=== PATIENT | male | born 1965 | race Caucasian/White ===

== ENCOUNTER 2021-11-12 09:24 | Inpatient (IN) | payer BC ==
[~2021-11-12] VITALS: Ht 180.3 cm; Wt 78.2 kg
[2021-11-12 10:31] LABS: BASOPHILS % (AUTO) 0.1 % (0-1); EOSINOPHILS % (AUTO) 0.4 % (0-6); HEMATOCRIT 42.6 % (42.0-52.0); HEMOGLOBIN 14.4 g/dl (14.0-17.9); LYMPHOCYTES % (AUTO) 12.1 % (21-51); MEAN CORPUSCULAR HEMOGLOBIN 30.4 PG (27.0-31.0); MEAN CORPUSCULAR HGB CONC 33.9 g/dL (33.0-36.5); MEAN CORPUSCULAR VOLUME 89.8 FL (78-98); MEAN PLATELET VOLUME 8.4 FL (7.4-10.4); MONOCYTES # (AUTO) 0.7 X10'3 (0-0.9); MONOCYTES % (AUTO) 8.3 % (2-12); NEUTROPHILS # (AUTO) 6.8 X10'3 (1.8-7.7); NEUTROPHILS % (AUTO) 79.1 % (42-75); PLATELET COUNT 257 X10'3 (140-440); RED BLOOD COUNT 4.74 X10'6 (4.70-6.10); RED CELL DISTRIBUTION WIDTH 13.3 % (11.5-14.5); WHITE BLOOD COUNT 8.6 X10'3 (4.5-11.0)
[2021-11-12 10:32] LABS: ALANINE AMINOTRANSFERASE 42 U/L (12-78); ALBUMIN 4.2 G/DL (3.4-5.0); ALBUMIN/GLOBULIN RATIO 1.1 (1.1-1.5); ALKALINE PHOSPHATASE 65 IU/L (46-116); ANION GAP 7 (8-16); ASPARTATE AMINO TRANSFERASE 27 U/L (10-37); BLOOD UREA NITROGEN 19 MG/DL (7-18); BUN/CREATININE RATIO 16.1 (5.4-32.0); CALCIUM 9.4 MG/DL (8.5-10.1); CHLORIDE 101 MMOL/L (99-107); CREATININE 1.18 MG/DL (0.60-1.10); GLUCOSE 126 MG/DL (70-104); LIPASE 107 U/L (73-393); POTASSIUM 4.1 MMOL/L (3.5-5.1); SODIUM 136 MMOL/L (135-145); TOTAL CARBON DIOXIDE 27.6 MMOL/L (24-32); TOTAL PROTEIN 7.9 G/DL (6.4-8.2); eGFR 63 ML/MIN
[2021-11-12] MEDS ORDERED: proCHLORperazine 10 MG/2 ml inj IV ONE (13:15)
[2021-11-12] MEDS ORDERED: morphine 4 MG/ML inj SYRINge IV ONE (13:15)
[2021-11-12] MEDS: normal saline 1000ml 1,000 ML IV SCH ×8 (13:43→20:47)
[2021-11-12] MEDS ORDERED: diatrozoate meglu/diatrozoate sod (37% iodine) 120ML oral solution PO ONE (14:30)
[2021-11-12] MEDS ORDERED: diatr meglu/diatrizoate 30ml oral sol.-(3 dose) bottle PO ONE (14:50)
[2021-11-12] MEDS: diatr meglu/diatrizoate 30ml oral sol.-(3 dose) bottle PO SCH ×2 (14:53→16:32)
[2021-11-12] MEDS ORDERED: sucralfate 1 gm tablet PO ONE (16:55)
[2021-11-12] MEDS ORDERED: LIDOcaine Viscous 15ml cup MM ONE (16:55)
[2021-11-12] MEDS ORDERED: mag hydrox/Alum hydrox/simeth 30ml oral suspension PO ONE (16:55)
[2021-11-12] MEDS ORDERED: haloperidol lactate 5mg/ml inj IM ONE (17:25)
[2021-11-12] MEDS ORDERED: temazepam 15mg capsule PO PRN (21:00)
--- NOTE | 2021-11-12 21:14 | NUR ---
medications stored in pharmacy
[2021-11-12] MEDS ORDERED: mag hydrox/Alum hydrox/simeth 30ml oral suspension PO PRN (21:25)
[2021-11-12] MEDS ORDERED: HYDROcodone/acetaminophen 5mg/325mg tablet PO PRN (21:25)
[2021-11-12] MEDS ORDERED: bisacodyl 10mg suppository rectal RC PRN (21:25)
[2021-11-12] MEDS ORDERED: magnesium hydroxide 30ml (MOM) UD suspension PO PRN (21:25)
[2021-11-12] MEDS ORDERED: diphenhydrAMINE 50 mg/ml inj IV PRN (21:25)
[2021-11-12] MEDS ORDERED: ondansetron 4mg rapidly disintigrating tab PO PRN (21:25)
[2021-11-12] MEDS ORDERED: HYDROcodone/acetaminophen 10/325mg tab PO PRN (21:25)
[2021-11-12] MEDS ORDERED: ondansetron/PF 4mg/2ml inj IV PRN (21:25)
[2021-11-12] MEDS ORDERED: acetaminophen 650mg rectal suppository RC PRN (21:25)
[2021-11-12] MEDS ORDERED: diphenhydrAMINE 25mg capsule PO PRN (21:25)
[2021-11-12] MEDS ORDERED: metoclopramide 5 mg/ml inj IV PRN (21:25)
[2021-11-12] MEDS ORDERED: morphine 2 MG/ML inj. syringe IV PRN ×2 (21:25)
[2021-11-12] MEDS ORDERED: HYDROmorphone inj. 0.5 MG/0.5 ML DISP.SYRIN IV PRN (21:25)
[2021-11-12] MEDS ORDERED: acetaminophen 325mg tablet PO PRN ×2 (21:25)
[2021-11-12] MEDS ORDERED: PANT40TA54 PO (21:39)
[2021-11-12] MEDS ORDERED: BACL10TA2 PO (21:39)
[2021-11-12] MEDS ORDERED: MIRT-87 PO (21:39)
[2021-11-12] MEDS: pantoprazole 40MG/NS 100ML BAG 100 ML IV SCH (21:48)
[2021-11-12 22:12] LABS: APTT 23 SECONDS (22-32)
[2021-11-12 22:14] LABS: HEMOGLOBIN A1C 5.7 % (4.5-6.2)
[2021-11-12] MEDS: dextrose 5%-1/2 normal saline 1,000 ML IV SCH (22:18)
[2021-11-12 22:23] LABS: CREATINE KINASE 160 U/L (39-308); ETHANOL < 0.010 GM/DL (0.0-0.010); MAGNESIUM 2.2 MG/DL (1.5-2.4); PHOSPHORUS 4.9 MG/DL (2.3-4.5)
[2021-11-13] MEDS: pantoprazole 40MG/NS 100ML BAG 100 ML IV SCH ×5 (01:35→23:30)
[2021-11-13] MEDS ORDERED: mirtazapine 15mg tablet PO STA (01:44)
--- NOTE | 2021-11-13 02:15 | NUR ---
Received report from ENRIQUE Novak. Awaiting patient arrival to the floor.
[2021-11-13 02:45] VITALS: BP 126/87
[2021-11-13 02:52] LABS: CLARITY,URINE CLEAR (Clear); COLOR,URINE YELLOW (Yellow); GLUCOSE, URINE NEGATIVE (Neg); KETONES,URINE NEGATIVE (Neg); LEUKOCYTE ESTERASE ,URINE NEGATIVE (Neg); NITRITES, URINE NEGATIVE (Neg); OCCULT BLOOD,URINE NEGATIVE (Neg); PROTEIN,URINE NEGATIVE (Neg); UROBILINOGEN,URINE 0.2 E.U/dL (0.2-1.0)
[2021-11-13 02:59] LABS: UA COLLECTION TYPE URINAL
[2021-11-13 03:01] LABS: URINE AMPHETAMINE SCREEN NEGATIVE (Neg); URINE BARBITUATE SCREEN NEGATIVE (Neg); URINE BENZODIAZEPINES SCREEN NEGATIVE (Neg); URINE CANNABINOID SCREEN NEGATIVE (Neg); URINE COCAINE SCREEN NEGATIVE (Neg); URINE METHADONE SCREEN NEGATIVE (Neg); URINE OPIATE SCREEN POSITIVE (Neg); URINE PHENCYCLIDINE SCREEN NEGATIVE (Neg)
[2021-11-13 06:00] VITALS: BP 121/83
--- NOTE | 2021-11-13 06:38 | NUR ---
Problems reprioritized. Patient report given, questions answered & plan of care reviewed with ENRIQUE Dodson.
[2021-11-13 06:39] LABS: BASOPHILS % (AUTO) 0.3 % (0-1); EOSINOPHILS % (AUTO) 0.7 % (0-6); HEMATOCRIT 37.4 % (42.0-52.0); HEMOGLOBIN 12.6 g/dl (14.0-17.9); LYMPHOCYTES # (AUTO) 1.5 X10'3 (1.1-4.8); LYMPHOCYTES % (AUTO) 26.5 % (21-51); MEAN CORPUSCULAR HEMOGLOBIN 30.2 PG (27.0-31.0); MEAN CORPUSCULAR HGB CONC 33.6 g/dL (33.0-36.5); MEAN PLATELET VOLUME 8.3 FL (7.4-10.4); MONOCYTES # (AUTO) 0.7 X10'3 (0-0.9); MONOCYTES % (AUTO) 12.5 % (2-12); NEUTROPHILS # (AUTO) 3.5 X10'3 (1.8-7.7); PLATELET COUNT 199 X10'3 (140-440); RED BLOOD COUNT 4.15 X10'6 (4.70-6.10); RED CELL DISTRIBUTION WIDTH 13.1 % (11.5-14.5); WHITE BLOOD COUNT 5.8 X10'3 (4.5-11.0)
--- NOTE | 2021-11-13 06:42 | NUR ---
Patient in room PCU 3025. I have received report from john NUNEZ and had the opportunity to ask questions and assume patient care.
[2021-11-13 07:12] LABS: ALANINE AMINOTRANSFERASE 33 U/L (12-78); ALBUMIN 3.2 G/DL (3.4-5.0); ALKALINE PHOSPHATASE 49 IU/L (46-116); ANION GAP 9 (8-16); ASPARTATE AMINO TRANSFERASE 22 U/L (10-37); BILIRUBIN,TOTAL 0.8 MG/DL (0.1-1.0); BLOOD UREA NITROGEN 12 MG/DL (7-18); CALCIUM 8.3 MG/DL (8.5-10.1); CHLORIDE 106 MMOL/L (99-107); CHOL/HDL RATIO 2.4 (0.00-4.99); CHOLESTEROL 149 MG/DL (0-200); CREATININE 0.86 MG/DL (0.60-1.10); GLUCOSE 100 MG/DL (70-104); HDL CHOLESTEROL 61 MG/DL (35-60); LDL CHOLESTEROL 72 MG/DL (50-100); POTASSIUM 3.4 MMOL/L (3.5-5.1); SODIUM 142 MMOL/L (135-145); TOTAL CARBON DIOXIDE 27.4 MMOL/L (24-32); TOTAL PROTEIN 6.4 G/DL (6.4-8.2); TRIGLYCERIDES 65 MG/DL (20-135); eGFR > 90 ML/MIN
[2021-11-13] MEDS: heparin, porcine 5000 units/ml vial SQ SCH ×2 (08:00→19:17)
[2021-11-13] MEDS: docusate sod 100mg capsule PO SCH ×2 (08:00→19:17)
[2021-11-13] MEDS: dextrose 5%-1/2 normal saline 1,000 ML IV SCH ×2 (10:07→19:24)
[2021-11-13] MEDS ORDERED: potassium CL 10mEq/100ml bag 100 ML IV PRN (10:55)
[2021-11-13] MEDS ORDERED: magnesium 4gm in 100ml NS 100 ML IV PRN (10:55)
[2021-11-13] MEDS ORDERED: magnesium 2GM in 50ml NS 50 ML IV PRN (10:55)
[2021-11-13] MEDS ORDERED: magnesium Cl slow-release 64mg tablet PO PRN (10:55)
[2021-11-13] MEDS ORDERED: POTASSIUM BICARB 20meq eff tab 20 MEQ TABLET.EFF PO PRN (10:55)
[2021-11-13 11:00] VITALS: BP 134/95
[2021-11-13 15:00] VITALS: BP 140/96
[2021-11-13] MEDS: POTASSIUM BICARB 20meq eff tab 20 MEQ TABLET.EFF PO PRN ×3 (15:46→23:32)
[2021-11-13 18:00] VITALS: BP 140/96
[2021-11-13] MEDS: K and/or MAG REPLACEMENT MC SCH (20:00)
[2021-11-13] MEDS: mirtazapine 15mg tablet PO SCH (21:44)
[2021-11-13 23:00] VITALS: BP 136/99
[2021-11-14] VITALS (27 sets, daily range): BP systolic 113–154; BP diastolic 74–100
[2021-11-14] MEDS: pantoprazole 40MG/NS 100ML BAG 100 ML IV SCH ×5 (04:20→23:21)
[2021-11-14] MEDS: dextrose 5%-1/2 normal saline 1,000 ML IV SCH ×3 (04:21→23:29)
[2021-11-14 07:29] LABS: ALANINE AMINOTRANSFERASE 25 U/L (12-78); ALBUMIN 3.5 G/DL (3.4-5.0); ALKALINE PHOSPHATASE 56 IU/L (46-116); ANION GAP 6 (8-16); ASPARTATE AMINO TRANSFERASE 22 U/L (10-37); BILIRUBIN,TOTAL 0.8 MG/DL (0.1-1.0); BLOOD UREA NITROGEN 7 MG/DL (7-18); BUN/CREATININE RATIO 6.7 (5.4-32.0); CALCIUM 8.6 MG/DL (8.5-10.1); CHLORIDE 105 MMOL/L (99-107); CREATININE 1.04 MG/DL (0.60-1.10); GLUCOSE 98 MG/DL (70-104); POTASSIUM 3.8 MMOL/L (3.5-5.1); SODIUM 140 MMOL/L (135-145); TOTAL CARBON DIOXIDE 29.3 MMOL/L (24-32); eGFR 73 ML/MIN
[2021-11-14 07:38] LABS: BASOPHILS % (AUTO) 0.3 % (0-1); EOSINOPHILS # (AUTO) 0.1 X10'3 (0-0.9); EOSINOPHILS % (AUTO) 0.9 % (0-6); HEMATOCRIT 39.4 % (42.0-52.0); HEMOGLOBIN 13.5 g/dl (14.0-17.9); LYMPHOCYTES # (AUTO) 1.1 X10'3 (1.1-4.8); LYMPHOCYTES % (AUTO) 17.7 % (21-51); MEAN CORPUSCULAR HEMOGLOBIN 30.6 PG (27.0-31.0); MEAN CORPUSCULAR HGB CONC 34.4 g/dL (33.0-36.5); MEAN CORPUSCULAR VOLUME 89.1 FL (78-98); MEAN PLATELET VOLUME 8.3 FL (7.4-10.4); MONOCYTES # (AUTO) 0.8 X10'3 (0-0.9); MONOCYTES % (AUTO) 12.6 % (2-12); NEUTROPHILS # (AUTO) 4.2 X10'3 (1.8-7.7); NEUTROPHILS % (AUTO) 68.5 % (42-75); PLATELET COUNT 219 X10'3 (140-440); RED BLOOD COUNT 4.42 X10'6 (4.70-6.10); RED CELL DISTRIBUTION WIDTH 13.2 % (11.5-14.5); WHITE BLOOD COUNT 6.1 X10'3 (4.5-11.0)
[2021-11-14] MEDS: docusate sod 100mg capsule PO SCH ×2 (08:00→19:27)
[2021-11-14] MEDS: heparin, porcine 5000 units/ml vial SQ SCH ×2 (08:00→19:40)
[2021-11-14] MEDS: K and/or MAG REPLACEMENT MC SCH ×2 (08:00→20:00)
[2021-11-14] MEDS ORDERED: HYDROmorphone/PF 0.2 MG/ML SYRINGE IV PRN (08:40)
[2021-11-14] MEDS ORDERED: hydrALAZINE 20mg/ml inj. IV PRN (08:40)
[2021-11-14] MEDS ORDERED: ondansetron/PF 4mg/2ml inj IV PRN ×3 (08:40→16:30)
[2021-11-14] MEDS ORDERED: morphine 2 MG/ML inj. syringe IV PRN ×2 (08:40→16:05)
[2021-11-14] MEDS ORDERED: morphine 4 MG/ML inj SYRINge IV PRN ×2 (08:40→16:05)
[2021-11-14] MEDS ORDERED: ringers solution, lacted 1,000 ML IV SCH ×2 (08:40→16:05)
[2021-11-14] MEDS ORDERED: labetalol 20mg/4ml (5mg/ml) syringe IV PRN (08:40)
[2021-11-14] MEDS ORDERED: ceFAZolin 1000mg inj ONE ×3 (09:20→11:26)
[2021-11-14] MEDS ORDERED: BUPIVAcaine/PF 2.5mg/ml (0.25%) 10ml vial ONE (09:20)
[2021-11-14] MEDS ORDERED: midazolam 1 mg/ML 2ml injection ONE (10:51)
[2021-11-14] MEDS ORDERED: fentaNYL /PF 50mcg/ml 5ml ampule ONE (10:51)
[2021-11-14] MEDS ORDERED: dexamethasone sod phosphate 4mg/ml inj. ONE (10:52)
[2021-11-14] MEDS ORDERED: propofol inj 20 ML IV ONE (10:52)
[2021-11-14] MEDS ORDERED: LIDOcaine 1%/PF 5ML 10 MG/ML VIAL ONE (10:53)
[2021-11-14] MEDS ORDERED: rocuronium 10mg/ml inj IV ONE ×3 (10:53→15:14)
[2021-11-14] MEDS ORDERED: labetalol 20mg/4ml (5mg/ml) syringe IV ONE (11:00)
[2021-11-14] MEDS ORDERED: sevoflurane 250ml liquid IH ONE (11:00)
[2021-11-14] MEDS ORDERED: BUPIVACAINE liposomal/PF 13.3 MG/ML vial IM ONE (11:34)
[2021-11-14] MEDS ORDERED: hydrALAZINE 20mg/ml inj. IV ONE (12:06)
[2021-11-14] MEDS ORDERED: fentaNYL/PF 50MCG/1 ML 2ML syringe ONE (15:02)
[2021-11-14] MEDS ORDERED: ondansetron/PF 4mg/2ml inj ONE ×2 (15:35→16:00)
[2021-11-14] MEDS ORDERED: glycopyrrolate 0.2mg/ml inj ONE (15:35)
[2021-11-14] MEDS ORDERED: neostigmine methylsulfate 1 MG/ML 10ml vial ONE (15:35)
--- NOTE | 2021-11-14 15:52 | NUR ---
Received from OR via HOSPITAL BED , accompanied by Anesthesiologist DR FLORES and report given by Anesthesiolgist. PT PRESENTS WITH PIV RIGHT INDIRA, COLTEN DRESSING NICO, VSS. Addendum: 11/14/21 at 1632 by Roxy Bangura RN, RN Amended: Links added.
[2021-11-14] MEDS ORDERED: proCHLORperazine 10 MG/2 ml inj IV PRN (16:05)
[2021-11-14] MEDS ORDERED: meperidine/PF 25mg/ml syringe IV PRN ×3 (16:05)
[2021-11-14] MEDS: HYDROmorphone/PF 0.2 MG/ML SYRINGE IV PRN ×3 (16:13→16:25)
[2021-11-14] MEDS ORDERED: naloxone 0.4 mg/ml inj IV PRN ×2 (16:30→16:40)
[2021-11-14] MEDS ORDERED: HYDROmorph/NS 0.2 mg/ml PCA 100 ML IV SCH (17:00)
[2021-11-14] MEDS: HYDROmorph/NS 0.2 mg/ml PCA 100 ML IV SCH ×3 (18:00→23:00)
--- NOTE | 2021-11-14 18:05 | NUR ---
Patient in PACU. Received report from ENRIQUE Omalley. Awaiting patient arrival to the floor.
--- NOTE | 2021-11-14 18:18 | NUR ---
Patient arrived to the floor from PACU. Placed in room 3025A. Awake and alert on 2L NC, in no apparent distress. Call light and items of frequent use within reach.
--- NOTE | 2021-11-14 18:22 | NUR ---
Report called to receiving nurse CYNTHIA NUNEZ AND MAHOGANY NUNEZ PUBLIC AREA SUPERVISOR. Transferred via HOSITAL BED WITH CLOTHING TRADES WORKERS DIALAUDID PUMP. Belongings WERE LEFT IN PT ROOM 3025A. BED IN LOW LOCKED POSTION WITH CALL LIGHT IN REACH. PT'S AT BEDSIDE. Special Issues communicated to receiving nurse. Addendum: 11/14/21 at 1835 by Roxy Calloway - ENRIQUE RN Amended: Links added.
[2021-11-14] MEDS: acetaminophen 1,000mg/100ml IV 100 ML IV SCH ×2 (18:43→20:00)
[2021-11-14] MEDS: sennosides/docusate sodium tablet PO SCH (19:27)
[2021-11-14] MEDS: ceFAZolin/D5W- 1GM premix 50 ML IV SCH (20:16)
[2021-11-14] MEDS: mirtazapine 15mg tablet PO SCH (21:05)
[2021-11-15] MEDS: HYDROmorph/NS 0.2 mg/ml PCA 100 ML IV SCH ×12 (01:20→23:00)
[2021-11-15 02:00] VITALS: BP 115/63
[2021-11-15] MEDS: acetaminophen 1,000mg/100ml IV 100 ML IV SCH (02:00)
[2021-11-15] MEDS: ceFAZolin/D5W- 1GM premix 50 ML IV SCH (02:40)
[2021-11-15] MEDS: ceFAZolin inj. 1,000 MG in dextrose 5%-water 50ml 50 ML IV SCH ×2 (02:40→12:54)
[2021-11-15] MEDS: pantoprazole 40MG/NS 100ML BAG 100 ML IV SCH ×5 (04:26→20:04)
[2021-11-15 06:00] VITALS: BP 146/93
--- NOTE | 2021-11-15 06:37 | NUR ---
Problems reprioritized. Patient report given, questions answered & plan of care reviewed with ENRIQUE Omalley.
[2021-11-15 06:39] LABS: BASOPHILS % (AUTO) 0.2 % (0-1); EOSINOPHILS % (AUTO) 0.1 % (0-6); HEMATOCRIT 37.4 % (42.0-52.0); HEMOGLOBIN 12.9 g/dl (14.0-17.9); LYMPHOCYTES # (AUTO) 1.4 X10'3 (1.1-4.8); LYMPHOCYTES % (AUTO) 15.4 % (21-51); MEAN CORPUSCULAR HEMOGLOBIN 30.8 PG (27.0-31.0); MEAN CORPUSCULAR HGB CONC 34.5 g/dL (33.0-36.5); MEAN CORPUSCULAR VOLUME 89.2 FL (78-98); MEAN PLATELET VOLUME 8.3 FL (7.4-10.4); MONOCYTES # (AUTO) 1.4 X10'3 (0-0.9); MONOCYTES % (AUTO) 15.6 % (2-12); NEUTROPHILS # (AUTO) 6.2 X10'3 (1.8-7.7); NEUTROPHILS % (AUTO) 68.7 % (42-75); PLATELET COUNT 200 X10'3 (140-440); RED BLOOD COUNT 4.19 X10'6 (4.70-6.10); RED CELL DISTRIBUTION WIDTH 13.4 % (11.5-14.5)
[2021-11-15 07:13] LABS: ALANINE AMINOTRANSFERASE 132 U/L (12-78); ALBUMIN 3.1 G/DL (3.4-5.0); ALBUMIN/GLOBULIN RATIO 0.9 (1.1-1.5); ALKALINE PHOSPHATASE 53 IU/L (46-116); ANION GAP 9 (8-16); ASPARTATE AMINO TRANSFERASE 92 U/L (10-37); BILIRUBIN,TOTAL 0.8 MG/DL (0.1-1.0); BLOOD UREA NITROGEN 7 MG/DL (7-18); BUN/CREATININE RATIO 7.3 (5.4-32.0); CALCIUM 8.2 MG/DL (8.5-10.1); CHLORIDE 104 MMOL/L (99-107); CREATININE 0.96 MG/DL (0.60-1.10); GLUCOSE 108 MG/DL (70-104); POTASSIUM 3.5 MMOL/L (3.5-5.1); SODIUM 140 MMOL/L (135-145); TOTAL CARBON DIOXIDE 27.4 MMOL/L (24-32); TOTAL PROTEIN 6.5 G/DL (6.4-8.2); eGFR 80 ML/MIN
[2021-11-15] MEDS: K and/or MAG REPLACEMENT MC SCH ×2 (07:22→20:00)
[2021-11-15] MEDS: sennosides/docusate sodium tablet PO SCH ×2 (08:00→20:03)
[2021-11-15] MEDS: heparin, porcine 5000 units/ml vial SQ SCH ×2 (08:00→20:04)
[2021-11-15] MEDS: docusate sod 100mg capsule PO SCH ×2 (08:00→20:03)
[2021-11-15 08:21] LABS: PLATELET ESTIMATE NORMAL; TOTAL CELLS COUNTED 100
[2021-11-15] MEDS: dextrose 5%-1/2 normal saline 1,000 ML IV SCH (09:25)
[2021-11-15 11:00] VITALS: BP 130/86
[2021-11-15 15:00] VITALS: BP 134/87
[2021-11-15 18:00] VITALS: BP 138/92
--- NOTE | 2021-11-15 18:35 | NUR ---
Patient in room PCU 3025. I have received report from ENRIQUE Omalley and had the opportunity to ask questions and assume patient care.
[2021-11-15] MEDS: mirtazapine 15mg tablet PO SCH (20:03)
[2021-11-15 22:00] VITALS: BP 141/91
--- NOTE | 2021-11-15 23:30 | NUR ---
pt had been complaining about not being able to void. attempted numerous interventions. no results. bladder scanned for 363 ml. pt very restless and anxious. notified MD bundler seasonal greenery. received order to place glynn catheter. pt tolerated procedure well. the urine output in FC was significantly more than the scanner registered. pt calmed and went to sleep.
[2021-11-16] MEDS: HYDROmorph/NS 0.2 mg/ml PCA 100 ML IV SCH ×5 (01:00→09:00)
[2021-11-16] MEDS: pantoprazole 40MG/NS 100ML BAG 100 ML IV SCH ×2 (01:31→06:00)
[2021-11-16 02:00] VITALS: BP 124/81
[2021-11-16 06:00] VITALS: BP 131/85
[2021-11-16 06:10] LABS: BASOPHILS % (AUTO) 0.3 % (0-1); EOSINOPHILS # (AUTO) 0.1 X10'3 (0-0.9); EOSINOPHILS % (AUTO) 1.1 % (0-6); LYMPHOCYTES # (AUTO) 1.1 X10'3 (1.1-4.8); LYMPHOCYTES % (AUTO) 13.1 % (21-51); MEAN CORPUSCULAR HEMOGLOBIN 31.2 PG (27.0-31.0); MEAN CORPUSCULAR HGB CONC 34.3 g/dL (33.0-36.5); MEAN CORPUSCULAR VOLUME 91.1 FL (78-98); MEAN PLATELET VOLUME 8.3 FL (7.4-10.4); MONOCYTES # (AUTO) 1.2 X10'3 (0-0.9); MONOCYTES % (AUTO) 15.3 % (2-12); NEUTROPHILS # (AUTO) 5.7 X10'3 (1.8-7.7); NEUTROPHILS % (AUTO) 70.2 % (42-75); PLATELET COUNT 199 X10'3 (140-440); RED BLOOD COUNT 4.17 X10'6 (4.70-6.10); RED CELL DISTRIBUTION WIDTH 13.3 % (11.5-14.5); WHITE BLOOD COUNT 8.1 X10'3 (4.5-11.0)
[2021-11-16 06:20] LABS: ALANINE AMINOTRANSFERASE 97 U/L (12-78); ALBUMIN 3.3 G/DL (3.4-5.0); ALKALINE PHOSPHATASE 57 IU/L (46-116); ANION GAP 5 (8-16); ASPARTATE AMINO TRANSFERASE 56 U/L (10-37); BILIRUBIN,TOTAL 1.1 MG/DL (0.1-1.0); BLOOD UREA NITROGEN 7 MG/DL (7-18); BUN/CREATININE RATIO 7.1 (5.4-32.0); CALCIUM 8.7 MG/DL (8.5-10.1); CHLORIDE 103 MMOL/L (99-107); CREATININE 0.99 MG/DL (0.60-1.10); GLUCOSE 100 MG/DL (70-104); POTASSIUM 3.8 MMOL/L (3.5-5.1); SODIUM 138 MMOL/L (135-145); TOTAL CARBON DIOXIDE 29.6 MMOL/L (24-32); TOTAL PROTEIN 6.7 G/DL (6.4-8.2); eGFR 78 ML/MIN
--- NOTE | 2021-11-16 06:47 | NUR ---
Problems reprioritized. Patient report given, questions answered & plan of care reviewed with ENRIQUE Agarwal.
[2021-11-16] MEDS: K and/or MAG REPLACEMENT MC SCH (08:00)
[2021-11-16] MEDS: docusate sod 100mg capsule PO SCH (08:42)
[2021-11-16] MEDS: sennosides/docusate sodium tablet PO SCH (08:42)
[2021-11-16] MEDS: heparin, porcine 5000 units/ml vial SQ SCH (08:43)
[2021-11-16] MEDS ORDERED: metoclopramide 5 mg/ml inj IV SCH (09:30)
[2021-11-16] MEDS ORDERED: magnesium hydroxide 30ml (MOM) UD suspension PO ONE (09:30)
[2021-11-16] MEDS ORDERED: HYDROcodone/acetaminophen 10/325mg tab PO PRN (09:45)
[2021-11-16] MEDS ORDERED: CADD PCA waste documentation MC SCH (09:50)
[2021-11-16] MEDS ORDERED: tamsulosin 0.4mg capsule PO SCH (10:20)
[2021-11-16 11:00] VITALS: BP 138/90
[2021-11-16 12:46] LABS: CLARITY,URINE SLIGHTLY CLOUDY (Clear); COLOR,URINE YELLOW (Yellow); GLUCOSE, URINE NEGATIVE (Neg); KETONES,URINE TRACE mg/dl (Neg); LEUKOCYTE ESTERASE ,URINE NEGATIVE (Neg); NITRITES, URINE NEGATIVE (Neg); OCCULT BLOOD,URINE LARGE (Neg); PROTEIN,URINE 30 mg/dl (Neg)
[2021-11-16 12:54] LABS: UA COLLECTION TYPE FOLEY CATH
[2021-11-16 12:56] LABS: BACTERIA,URINE NONE SEEN /HPF (Neg); MUCUS STRANDS FEW /LPF (Neg); RBC,URINE 50-100 /HPF (0-2); SQUAMOUS EPITHELIAL CELL,UR FEW /LPF (FEW); WBC,URINE NONE SEEN /HPF (0-4)
--- NOTE | 2021-11-16 15:00 | NUR ---
PATIENT STABLE AND APPROPRIATE FOR DISCHARGE, IV REMOVED, TELE REMOVED, EDUCATION GIVEN, NEW MEDS E-SCRIPTED TO PREFERRED PHARMACY, ALL BELONGINGS SENT WITH PATIENT, PATIENT TAKEN TO LOBBY BY WHEELCHAIR TO AN AWAITING CAR WHERE WILL TAKE PATIENT HOME
[2021-11-17] MEDS ORDERED: tamsulosin 0.4mg capsule PO SCH (08:00)
== END 2021-11-16 15:01 | disposition home or self-care (01) | DRG 327 ==
LOC: ER 09:24 → ED HOLD 21:28 → PCU 3S 11-13 02:21
PROVIDERS: ADMIT Family Medicine; ATTEND Internal Medicine
PROC: 0DV44ZZ Restriction of Esophagogastric Junction, Percutaneous Endoscopic Approach (ICD-10-PCS; 2021-11-14)
PROC: 0DNW4ZZ Release Peritoneum, Percutaneous Endoscopic Approach (ICD-10-PCS; 2021-11-14)
PROC: 8E0W4CZ Robotic Assisted Procedure of Trunk Region, Percutaneous Endoscopic Approach (ICD-10-PCS; 2021-11-14)
PROC: 0BQT4ZZ Repair Diaphragm, Percutaneous Endoscopic Approach (ICD-10-PCS; principal; 2021-11-14 11:00)
DX: K44.9 Diaphragmatic hernia without obstruction or gangrene (principal); N17.9 Acute kidney failure, unspecified; K21.00 Gastro-esophageal reflux disease with esophagitis, without bleeding; K66.0 Peritoneal adhesions (postprocedural) (postinfection); K22.2 Esophageal obstruction; Z20.822 Contact with and (suspected) exposure to COVID-19; I10 Essential (primary) hypertension; Z88.8 Allergy status to other drugs, medicaments and biological substances; Z79.899 Other long term (current) drug therapy
CPT/HCPCS: 96372; 96374; 96375; 99285; Z7506; Z7508; 36415; 71045; 74176; 74220; 80053; 80061; 80305; 80320; 81001; 81003; 82550; 83036; 83690; 83735; 83880; 84100; 84443; 85007; 85025; 85610; 85730; 86885; 86900; 86901; 87081; 87635; A4215; A4314; A4358; A4615; A4618; C1758; C1781; C9113; C9290; G0378; J0131; J0360; J0690; J0780; J1100; J1170; J1630; J1644; J2175; J2250; J2270; J2405; J2704; J2710; J2765; J3010; J3490; J7030; J7042; J7060; J7120

== ENCOUNTER 2022-03-24 06:57 | Inpatient (IN) | payer BC ==
[~2022-03-24] VITALS: Ht 180.3 cm; Wt 74.5 kg
[~2022-03-24 06:57] MED LIST: BACL10TA2 PO; MIRT-87 PO; PANT40TA54 PO
[2022-03-24 08:00] LABS: BASOPHILS % (AUTO) 0.2 % (0-1); EOSINOPHILS % (AUTO) 0 % (0-6); HEMATOCRIT 47.9 % (42.0-52.0); HEMOGLOBIN 16.1 g/dl (14.0-17.9); LYMPHOCYTES # (AUTO) 0.8 X10'3 (1.1-4.8); LYMPHOCYTES % (AUTO) 3.5 % (21-51); MEAN CORPUSCULAR HEMOGLOBIN 30.4 PG (27.0-31.0); MEAN CORPUSCULAR HGB CONC 33.7 g/dL (33.0-36.5); MEAN CORPUSCULAR VOLUME 90.3 FL (78-98); MEAN PLATELET VOLUME 8.8 FL (7.4-10.4); MONOCYTES # (AUTO) 1.2 X10'3 (0-0.9); MONOCYTES % (AUTO) 5.5 % (2-12); NEUTROPHILS # (AUTO) 20.4 X10'3 (1.8-7.7); NEUTROPHILS % (AUTO) 90.8 % (42-75); PLATELET COUNT 281 X10'3 (140-440); RED BLOOD COUNT 5.31 X10'6 (4.70-6.10); RED CELL DISTRIBUTION WIDTH 13.5 % (11.5-14.5); WHITE BLOOD COUNT 22.4 X10'3 (4.5-11.0)
[2022-03-24 08:15] LABS: ALANINE AMINOTRANSFERASE 45 U/L (12-78); ALBUMIN 5.1 G/DL (3.4-5.0); ALBUMIN/GLOBULIN RATIO 1.1 (1.1-1.5); ALKALINE PHOSPHATASE 106 IU/L (46-116); ANION GAP 19 (8-16); ASPARTATE AMINO TRANSFERASE 43 U/L (10-37); BILIRUBIN,TOTAL 1.1 MG/DL (0.1-1.0); BLOOD UREA NITROGEN 43 MG/DL (7-18); BUN/CREATININE RATIO 10.3 (5.4-32.0); CALCIUM 11.6 MG/DL (8.5-10.1); CHLORIDE 94 MMOL/L (99-107); CREATININE 4.18 MG/DL (0.60-1.10); GLUCOSE 252 MG/DL (70-104); LIPASE 82 U/L (73-393); POTASSIUM 3.8 MMOL/L (3.5-5.1); SODIUM 135 MMOL/L (135-145); TOTAL CARBON DIOXIDE 21.9 MMOL/L (24-32); TOTAL PROTEIN 9.6 G/DL (6.4-8.2); eGFR 15 ML/MIN
[2022-03-24] MEDS ORDERED: ondansetron/PF 4mg/2ml inj IV ONE (09:35)
[2022-03-24] MEDS ORDERED: CefTRIAXone 2gm/D5W 50ml BAG 50 ML IV ONE (09:35)
[2022-03-24] MEDS ORDERED: normal saline 1000ML IV soln IVB ONE ×2 (09:35)
--- NOTE | 2022-03-24 09:45 | NUR ---
Patient off diaz to CT.
[2022-03-24 10:46] LABS: MAGNESIUM 2.8 MG/DL (1.5-2.4)
[2022-03-24] MEDS ORDERED: thiamine inj. 100 MG in normal saline 100ml IV soln 99 ML IV ONE (11:20)
[2022-03-24] MEDS ORDERED: thiamine 100mg/ml 2ml inj. IV ONE (11:45)
[2022-03-24 11:46] LABS: CLARITY,URINE SLIGHTLY CLOUDY (Clear); COLOR,URINE YELLOW (Yellow); GLUCOSE, URINE NEGATIVE (Neg); KETONES,URINE 15 mg/dl (Neg); LEUKOCYTE ESTERASE ,URINE NEGATIVE (Neg); NITRITES, URINE NEGATIVE (Neg); OCCULT BLOOD,URINE MODERATE (Neg); PROTEIN,URINE 30 mg/dl (Neg); UROBILINOGEN,URINE 0.2 E.U/dL (0.2-1.0)
[2022-03-24 11:52] LABS: UA COLLECTION TYPE CLN CATCH MIDSTREAM
[2022-03-24 11:54] LABS: BACTERIA,URINE FEW /HPF (Neg); HYALINE CASTS >30 /LPF (NEGATIVE); MUCUS STRANDS FEW /LPF (Neg); SQUAMOUS EPITHELIAL CELL,UR FEW /LPF (FEW); STARCH,URINE FEW /HPF (NEGATIVE); TRANSITIONAL EPI CELLS,URINE FEW /HPF; WBC,URINE 0-4 /HPF (0-4)
[2022-03-24] MEDS ORDERED: magnesium 4gm in 100ml NS 100 ML IV PRN (12:45)
[2022-03-24] MEDS ORDERED: acetaminophen 325mg tablet PO PRN (12:45)
[2022-03-24] MEDS ORDERED: potassium Cl 40MEQ/1/2NS 520ml 520 ML IV PRN (12:45)
[2022-03-24] MEDS ORDERED: potassium Cl 20 mEq SR tablet PO PRN ×2 (12:45)
[2022-03-24] MEDS ORDERED: magnesium Cl slow-release 64mg tablet PO PRN (12:45)
[2022-03-24] MEDS: normal saline 1000ml 1,000 ML IV SCH ×2 (13:16→18:58)
[2022-03-24 18:00] VITALS: BP 143/91
--- NOTE | 2022-03-24 19:02 | NUR ---
Report called up to surgical floor. Patient to be transferred when staff available. VSS.
--- NOTE | 2022-03-24 19:09 | NUR ---
Patient in room ED 11. I have received report from RAUDEL STANFORD RN and had the opportunity to ask questions and WILL assume patient care UPON ARRIVAL TO ROOM 340B. Addendum: 03/24/22 at 1911 by Kelsy Baez RN Amended: Links added.
[2022-03-24] MEDS: heparin, porcine 5000 units/ml vial SQ SCH (19:33)
[2022-03-24] MEDS: acetaminophen 325mg tablet PO PRN (19:49)
[2022-03-24] MEDS: K and/or MAG REPLACEMENT MC SCH (20:00)
--- NOTE | 2022-03-24 20:00 | NUR ---
Student documentation: I have reviewed and agree with all interventions, assessments performed and documented by CHAN PELAEZ,ENRIQUE STUDENT.Student Medication Administration: For this medication-pass time frame, all medication were reviewed, dispensed, administered and documented per hospital policy by CHAN PELAEZ RN STUDENT. Addendum: 03/24/22 at 2340 by Kelsy Baez RN Amended: Links added.
[2022-03-24] MEDS: temazepam 15mg capsule PO PRN (21:21)
[2022-03-24 22:00] VITALS: BP 115/74
[2022-03-25] MEDS: normal saline 1000ml 1,000 ML IV SCH ×3 (02:05→17:20)
[2022-03-25 06:00] VITALS: BP_SYST 109; BP_SYST 118; BP_DIAS 73; BP_DIAS 75
--- NOTE | 2022-03-25 06:57 | NUR ---
Problems reprioritized. Patient report given, questions answered & plan of care reviewed with ENRIQUE FLORES. Addendum: 03/25/22 at 0657 by Kelsy Baez RN Amended: Links added.
[2022-03-25 07:24] LABS: BASOPHILS % (AUTO) 0.2 % (0-1); EOSINOPHILS % (AUTO) 0.1 % (0-6); HEMATOCRIT 40.1 % (42.0-52.0); HEMOGLOBIN 13.2 g/dl (14.0-17.9); LYMPHOCYTES # (AUTO) 1.7 X10'3 (1.1-4.8); LYMPHOCYTES % (AUTO) 13.4 % (21-51); MEAN CORPUSCULAR HEMOGLOBIN 29.8 PG (27.0-31.0); MEAN CORPUSCULAR HGB CONC 32.8 g/dL (33.0-36.5); MEAN CORPUSCULAR VOLUME 90.8 FL (78-98); MONOCYTES # (AUTO) 1.2 X10'3 (0-0.9); MONOCYTES % (AUTO) 9.4 % (2-12); NEUTROPHILS # (AUTO) 9.7 X10'3 (1.8-7.7); NEUTROPHILS % (AUTO) 76.9 % (42-75); PLATELET COUNT 195 X10'3 (140-440); RED BLOOD COUNT 4.42 X10'6 (4.70-6.10); RED CELL DISTRIBUTION WIDTH 13.3 % (11.5-14.5); WHITE BLOOD COUNT 12.6 X10'3 (4.5-11.0)
[2022-03-25 07:35] LABS: ALANINE AMINOTRANSFERASE 42 U/L (12-78); ALBUMIN 3.4 G/DL (3.4-5.0); ALKALINE PHOSPHATASE 76 IU/L (46-116); ANION GAP 7 (8-16); ASPARTATE AMINO TRANSFERASE 58 U/L (10-37); BILIRUBIN,TOTAL 0.5 MG/DL (0.1-1.0); BLOOD UREA NITROGEN 40 MG/DL (7-18); BUN/CREATININE RATIO 28.2 (5.4-32.0); CHLORIDE 105 MMOL/L (99-107); CREATININE 1.42 MG/DL (0.60-1.10); GLUCOSE 110 MG/DL (70-104); POTASSIUM 4.7 MMOL/L (3.5-5.1); SODIUM 139 MMOL/L (135-145); TOTAL CARBON DIOXIDE 27.3 MMOL/L (24-32); TOTAL PROTEIN 6.8 G/DL (6.4-8.2); eGFR 51 ML/MIN
[2022-03-25] MEDS: K and/or MAG REPLACEMENT MC SCH ×2 (08:00→20:00)
[2022-03-25] MEDS: acetaminophen 325mg tablet PO PRN ×3 (08:23→20:26)
[2022-03-25] MEDS: ondansetron/PF 4mg/2ml inj IV PRN (08:26)
[2022-03-25] MEDS: heparin, porcine 5000 units/ml vial SQ SCH ×2 (08:27→20:27)
[2022-03-25 10:00] VITALS: BP 146/102
[2022-03-25] MEDS ORDERED: guaiFENesin/DM/phenylephrine syrup 120ml bottle PO PRN (11:50)
[2022-03-25] MEDS ORDERED: guaiFENesin/DM 10ml UD oral syrup PO PRN (11:53)
--- NOTE | 2022-03-25 11:53 | NUR ---
PAGER ID: [phone] MESSAGE: Alessandra Barnett [phone] Re: Jasmin ModiB would like his protonix BID
[2022-03-25] MEDS: pantoprazole 40mg Tablet.DR PO SCH (12:05)
[2022-03-25] MEDS: loratadine 10mg tablet PO SCH (12:05)
[2022-03-25 14:43] LABS: MAGNESIUM 2.6 MG/DL (1.5-2.4)
[2022-03-25] MEDS ORDERED: LORazepam 2 mg/ml vial IV PRN (14:50)
--- NOTE | 2022-03-25 15:34 | NUR ---
Problems reprioritized. Patient report given, questions answered & plan of care reviewed with Sruthi NUNEZ.
[2022-03-25] MEDS: LORazepam 0.5 MG tablet PO PRN ×2 (15:40→20:25)
[2022-03-25] MEDS: fluticasone nasal spray 16GM bottle NS SCH (15:41)
--- NOTE | 2022-03-25 15:50 | NUR ---
Assuming patient care from Alessandra NUNEZ
--- NOTE | 2022-03-25 17:59 | NUR ---
REPORT GIVEN TO VARUN NUNEZ, ALL QUESTIONS ANSWERED. PT RESTING COMFORTABLY IN BED, SOME PAIN COMPLAINTS. VARUN RESUMING CARE.
[2022-03-25 18:30] VITALS: BP 158/87
--- NOTE | 2022-03-25 18:41 | NUR ---
Patient in room [facility] 340. I have received report from ENRIQUE ZAMORANO and had the opportunity to ask questions and assume patient care. Addendum: 03/25/22 at 1842 by Kelsy Baez RN Amended: Links added.
[2022-03-25] MEDS: temazepam 15mg capsule PO PRN (20:24)
[2022-03-25 22:00] VITALS: BP 126/84
[2022-03-26] MEDS: normal saline 1000ml 1,000 ML IV SCH (02:29)
--- NOTE | 2022-03-26 02:34 | NUR ---
Student documentation: I have reviewed and agree with all interventions, assessments performed and documented by CHAN PELAEZ RN STUDENT.Student Medication Administration: For this medication-pass time frame, all medication were reviewed, dispensed, administered and documented per hospital policy by HEIDI GILES RN STUDENT. Addendum: 03/26/22 at 0238 by Kelsy Baez RN Amended: Links added.
[2022-03-26] MEDS: acetaminophen 325mg tablet PO PRN (03:15)
[2022-03-26] MEDS: ondansetron/PF 4mg/2ml inj IV PRN (04:43)
--- NOTE | 2022-03-26 04:44 | NUR ---
medicated c/o nausea with zofran. earlier at 0315 c/o headache given tylenol and warm wash cloth to forehead for this.
[2022-03-26 05:37] LABS: BASOPHILS % (AUTO) 0.2 % (0-1); EOSINOPHILS % (AUTO) 0.1 % (0-6); HEMATOCRIT 39.5 % (42.0-52.0); HEMOGLOBIN 13.6 g/dl (14.0-17.9); LYMPHOCYTES # (AUTO) 1.1 X10'3 (1.1-4.8); LYMPHOCYTES % (AUTO) 12.6 % (21-51); MEAN CORPUSCULAR HEMOGLOBIN 31.1 PG (27.0-31.0); MEAN CORPUSCULAR HGB CONC 34.4 g/dL (33.0-36.5); MEAN CORPUSCULAR VOLUME 90.6 FL (78-98); MEAN PLATELET VOLUME 8.5 FL (7.4-10.4); MONOCYTES % (AUTO) 11.3 % (2-12); NEUTROPHILS # (AUTO) 6.7 X10'3 (1.8-7.7); NEUTROPHILS % (AUTO) 75.8 % (42-75); PLATELET COUNT 202 X10'3 (140-440); RED BLOOD COUNT 4.36 X10'6 (4.70-6.10); RED CELL DISTRIBUTION WIDTH 13.3 % (11.5-14.5); WHITE BLOOD COUNT 8.9 X10'3 (4.5-11.0)
[2022-03-26 05:55] LABS: ALANINE AMINOTRANSFERASE 42 U/L (12-78); ALBUMIN 3.4 G/DL (3.4-5.0); ALKALINE PHOSPHATASE 76 IU/L (46-116); ANION GAP 6 (8-16); ASPARTATE AMINO TRANSFERASE 47 U/L (10-37); BILIRUBIN,TOTAL 0.8 MG/DL (0.1-1.0); BLOOD UREA NITROGEN 19 MG/DL (7-18); BUN/CREATININE RATIO 19.4 (5.4-32.0); CALCIUM 8.6 MG/DL (8.5-10.1); CHLORIDE 101 MMOL/L (99-107); CREATININE 0.98 MG/DL (0.60-1.10); GLUCOSE 115 MG/DL (70-104); POTASSIUM 3.5 MMOL/L (3.5-5.1); SODIUM 134 MMOL/L (135-145); TOTAL CARBON DIOXIDE 26.8 MMOL/L (24-32); TOTAL PROTEIN 6.8 G/DL (6.4-8.2); eGFR 79 ML/MIN
--- NOTE | 2022-03-26 06:29 | NUR ---
Problems reprioritized. Patient report given, questions answered & plan of care reviewed with ENRIQUE PIERSON. Addendum: 03/26/22 at 0629 by Kelsy aBez RN Amended: Links added.
--- NOTE | 2022-03-26 06:33 | NUR ---
Patient in room [facility] 340. I have received report from ENRIQUE Tierney and had the opportunity to ask questions and assume patient care.
[2022-03-26 06:40] VITALS: BP 147/82
[2022-03-26] MEDS: pantoprazole 40mg Tablet.DR PO SCH (07:06)
[2022-03-26] MEDS: fluticasone nasal spray 16GM bottle NS SCH (07:06)
[2022-03-26] MEDS: heparin, porcine 5000 units/ml vial SQ SCH (07:06)
[2022-03-26] MEDS: loratadine 10mg tablet PO SCH (07:06)
[2022-03-26] MEDS: K and/or MAG REPLACEMENT MC SCH (08:00)
[2022-03-26] MEDS ORDERED: FLUT16SP NS (10:01)
[2022-03-26 10:56] LABS: % FREE PSA 22.2 % (.); PSA, FREE 0.2 ng/mL
[2022-03-26 11:00] VITALS: BP 131/92
--- NOTE | 2022-03-26 11:51 | NUR ---
Patient alert and oriented in no apparent acute distress. Discussed with patient discharge instructions and new prescriptions. Patient verbalizes understanding of teaching and stated had no questions. Patient waiting for to arrive for transport home.
--- NOTE | 2022-03-26 12:11 | NUR ---
Patient dc'd with all personal belongings including home meds that were stored in the pharmacy. 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
== END 2022-03-26 12:16 | disposition home or self-care (01) | DRG 640 ==
LOC: ER 06:59 → ED HOLD 12:48 → EDBEDREQ 16:01 → SUR 3N 19:13
PROVIDERS: ADMIT Internal Medicine; ATTEND Internal Medicine
DX: E86.0 Dehydration (principal); N17.0 Acute kidney failure with tubular necrosis; E87.20 Acidosis, unspecified; E83.41 Hypermagnesemia; J32.0 Chronic maxillary sinusitis; R74.01 Elevation of levels of liver transaminase levels; R79.89 Other specified abnormal findings of blood chemistry; F10.90 Alcohol use, unspecified, uncomplicated; E83.52 Hypercalcemia; K21.9 Gastro-esophageal reflux disease without esophagitis; T38.0X5A Adverse effect of glucocorticoids and synthetic analogues, initial encounter; Z86.16 Personal history of COVID-19; Z88.8 Allergy status to other drugs, medicaments and biological substances; Y92.89 Other specified places as the place of occurrence of the external cause; Z79.899 Other long term (current) drug therapy
CPT/HCPCS: 36415; 70486; 71045; 74176; 76770; 80053; 81001; 83605; 83690; 83735; 84145; 84153; 84154; 85025; 87040; 87081; 96365; 96366; 96375; 99285; G0378; J0696; J1644; J2405; J3411; J7030

== ENCOUNTER 2022-10-18 12:43 | Inpatient (IN) | payer BC ==
[~2022-10-18] VITALS: Ht 180.3 cm; Wt 75.0 kg
[~2022-10-18 12:43] MED LIST changes: +FLUT16SP NS
[2022-10-18 14:15] LABS: BASOPHILS % (AUTO) 0.2 % (0-1); EOSINOPHILS % (AUTO) 0 % (0-6); HEMATOCRIT 41.7 % (42.0-52.0); LYMPHOCYTES # (AUTO) 0.7 X10'3 (1.1-4.8); LYMPHOCYTES % (AUTO) 6.9 % (21-51); MEAN CORPUSCULAR HEMOGLOBIN 30.6 PG (27.0-31.0); MEAN CORPUSCULAR HGB CONC 33.6 g/dL (33.0-36.5); MEAN CORPUSCULAR VOLUME 91.2 FL (78-98); MEAN PLATELET VOLUME 8.6 FL (7.4-10.4); MONOCYTES # (AUTO) 0.5 X10'3 (0-0.9); MONOCYTES % (AUTO) 5.4 % (2-12); NEUTROPHILS # (AUTO) 8.6 X10'3 (1.8-7.7); NEUTROPHILS % (AUTO) 87.5 % (42-75); PLATELET COUNT 241 X10'3 (140-440); RED BLOOD COUNT 4.57 X10'6 (4.70-6.10); RED CELL DISTRIBUTION WIDTH 14.7 % (11.5-14.5); WHITE BLOOD COUNT 9.8 X10'3 (4.5-11.0)
[2022-10-18 14:24] LABS: ALANINE AMINOTRANSFERASE 43 U/L (12-78); ALBUMIN 4.3 G/DL (3.4-5.0); ALBUMIN/GLOBULIN RATIO 1.3 (1.1-1.5); ALKALINE PHOSPHATASE 74 IU/L (46-116); ANION GAP 10 (8-16); ASPARTATE AMINO TRANSFERASE 44 U/L (10-37); BILIRUBIN,TOTAL 0.8 MG/DL (0.1-1.0); BLOOD UREA NITROGEN 17 MG/DL (7-18); BUN/CREATININE RATIO 15.6 (10.0-20.0); CHLORIDE 101 MMOL/L (99-107); CREATININE 1.09 MG/DL (0.60-1.10); GLUCOSE 132 MG/DL (70-104); LIPASE 51 U/L (73-393); POTASSIUM 3.7 MMOL/L (3.5-5.1); SODIUM 137 MMOL/L (135-145); TOTAL CARBON DIOXIDE 26.1 MMOL/L (24-32); TOTAL PROTEIN 7.7 G/DL (6.4-8.2); eGFR 69 ML/MIN
[2022-10-18] MEDS ORDERED: ondansetron/PF 4mg/2ml inj IV ONE (15:05)
[2022-10-18] MEDS ORDERED: normal saline 1000ML IV soln IVB ONE (15:05)
[2022-10-18] MEDS ORDERED: famotidine/PF 10 mg/ml inj IV ONE (15:05)
[2022-10-18] MEDS ORDERED: IOHEXOL 12MG/ML oral solution 500 ML BOTTLE PO ONE (15:15)
[2022-10-18 15:17] LABS: CALCIUM 9.3 MG/DL (8.5-10.1)
[2022-10-18] MEDS ORDERED: morphine 4 MG/ML inj SYRINge IV ONE (15:30)
[2022-10-18 17:08] LABS: CLARITY,URINE CLEAR (Clear); COLOR,URINE YELLOW (Yellow); GLUCOSE, URINE NEGATIVE (Neg); KETONES,URINE 15 mg/dl (Neg); LEUKOCYTE ESTERASE ,URINE NEGATIVE (Neg); NITRITES, URINE NEGATIVE (Neg); OCCULT BLOOD,URINE NEGATIVE (Neg); PH,URINE 6.5 (4.8-8.0); PROTEIN,URINE NEGATIVE (Neg); UROBILINOGEN,URINE 0.2 E.U/dL (0.2-1.0)
[2022-10-18 17:14] LABS: UA COLLECTION TYPE CLN CATCH MIDSTREAM
[2022-10-18] MEDS ORDERED: metoclopramide 5 mg/ml inj IV PRN (17:45)
[2022-10-18] MEDS ORDERED: magnesium Cl slow-release 64mg tablet PO PRN (17:45)
[2022-10-18] MEDS ORDERED: magnesium 2GM in 50ml NS 50 ML IV PRN (17:45)
[2022-10-18] MEDS ORDERED: HYDROmorphone/PF 0.2 MG/ML SYRINGE IV PRN (17:45)
[2022-10-18] MEDS ORDERED: HYDROmorphone inj. 0.5 MG/0.5 ML DISP.SYRIN IV PRN (17:45)
[2022-10-18] MEDS ORDERED: pantoprazole 40mg IV 80 MG in normal saline 100ml IV soln 100 ML IV ONE (17:45)
[2022-10-18] MEDS ORDERED: magnesium 4gm in 100ml NS 100 ML IV PRN (17:45)
[2022-10-18] MEDS ORDERED: mag hydrox/Alum hydrox/simeth 30ml oral suspension PO PRN (17:45)
[2022-10-18] MEDS ORDERED: ondansetron/PF 4mg/2ml inj IV PRN (17:45)
[2022-10-18] MEDS ORDERED: acetaminophen 325mg tablet NG PRN ×2 (17:45)
[2022-10-18] MEDS ORDERED: potassium Cl 20 mEq SR tablet PO PRN ×2 (17:45)
[2022-10-18] MEDS ORDERED: potassium Cl 40MEQ/1/2NS 520ml 520 ML IV PRN (17:45)
[2022-10-18] MEDS: normal saline 1000ml 1,000 ML IV SCH (18:03)
[2022-10-18] MEDS ORDERED: LIDOcaine 2% 10ml TOPICAL JELLY (Urojet) MM ONE (18:15)
[2022-10-18] MEDS ORDERED: LidoCAINE 2% Topical Jelly 11mL syringe MM ONE (18:30)
[2022-10-18] MEDS ORDERED: FLUT16SP26 BOTHNARES (18:32)
[2022-10-18] MEDS ORDERED: CETI10TA15 PO (18:38)
[2022-10-18] MEDS ORDERED: MULT-1180 PO (18:38)
[2022-10-18] MEDS: K and/or MAG REPLACEMENT MC SCH (19:57)
[2022-10-18] MEDS: enoxaparin 40mg/0.4ml syringe SQ SCH (20:23)
[2022-10-18] MEDS: mirtazapine 15mg tablet PO SCH (20:23)
--- NOTE | 2022-10-18 21:29 | NUR ---
attempted to call report. per valentina on o/n the nurse will not be taking the pt at this time due to nurse recieving another new pt. recieving nurse will call back.
--- NOTE | 2022-10-18 21:49 | NUR ---
Patient in room ED 14. I have received report from ENRIQUE Martin and had the opportunity to ask questions and assume patient care.
[2022-10-18 22:24] VITALS: BP 141/92
[2022-10-19] MEDS: normal saline 1000ml 1,000 ML IV SCH ×3 (05:54→21:10)
[2022-10-19 06:00] VITALS: BP 137/89
--- NOTE | 2022-10-19 06:14 | NUR ---
Problems reprioritized. Patient report given, questions answered & plan of care reviewed with ENRIQUE Castle.
[2022-10-19] MEDS: pantoprazole 40MG/NS 100ML BAG 100 ML IV SCH (07:55)
[2022-10-19] MEDS: K and/or MAG REPLACEMENT MC SCH ×2 (08:00→19:56)
[2022-10-19 09:50] LABS: BASOPHILS % (AUTO) 0.1 % (0-1); EOSINOPHILS % (AUTO) 0.2 % (0-6); HEMATOCRIT 38.7 % (42.0-52.0); HEMOGLOBIN 12.8 g/dl (14.0-17.9); LYMPHOCYTES # (AUTO) 0.7 X10'3 (1.1-4.8); LYMPHOCYTES % (AUTO) 10.3 % (21-51); MEAN CORPUSCULAR HEMOGLOBIN 30.4 PG (27.0-31.0); MEAN CORPUSCULAR HGB CONC 33.1 g/dL (33.0-36.5); MEAN CORPUSCULAR VOLUME 91.8 FL (78-98); MEAN PLATELET VOLUME 8.3 FL (7.4-10.4); MONOCYTES # (AUTO) 0.5 X10'3 (0-0.9); MONOCYTES % (AUTO) 7.7 % (2-12); NEUTROPHILS # (AUTO) 5.8 X10'3 (1.8-7.7); NEUTROPHILS % (AUTO) 81.7 % (42-75); PLATELET COUNT 196 X10'3 (140-440); RED BLOOD COUNT 4.22 X10'6 (4.70-6.10); RED CELL DISTRIBUTION WIDTH 14.7 % (11.5-14.5); WHITE BLOOD COUNT 7.1 X10'3 (4.5-11.0)
[2022-10-19 10:00] VITALS: BP 129/86
[2022-10-19 10:04] LABS: ALANINE AMINOTRANSFERASE 36 U/L (12-78); ALBUMIN 3.3 G/DL (3.4-5.0); ALBUMIN/GLOBULIN RATIO 1.1 (1.1-1.5); ALKALINE PHOSPHATASE 63 IU/L (46-116); ANION GAP 10 (8-16); ASPARTATE AMINO TRANSFERASE 31 U/L (10-37); BLOOD UREA NITROGEN 10 MG/DL (7-18); BUN/CREATININE RATIO 12.3 (10.0-20.0); CALCIUM 8.1 MG/DL (8.5-10.1); CHLORIDE 103 MMOL/L (99-107); CREATININE 0.81 MG/DL (0.60-1.10); GLUCOSE 105 MG/DL (70-104); MAGNESIUM 1.5 MG/DL (1.5-2.4); PHOSPHORUS 2.5 MG/DL (2.3-4.5); POTASSIUM 3.3 MMOL/L (3.5-5.1); SODIUM 138 MMOL/L (135-145); TOTAL CARBON DIOXIDE 25.4 MMOL/L (24-32); TOTAL PROTEIN 6.3 G/DL (6.4-8.2); eGFR > 90 ML/MIN
[2022-10-19] MEDS ORDERED: LIDOcaine Viscous 15ml cup ONE (13:10)
[2022-10-19] MEDS ORDERED: fentaNYL/PF 50MCG/1 ML 2ML syringe ONE (13:10)
[2022-10-19] MEDS ORDERED: MIDAZolam 1 MG/ML 5ML VIAL ONE (13:10)
[2022-10-19 13:11] VITALS: BP 135/79
[2022-10-19 18:00] VITALS: BP 139/87
--- NOTE | 2022-10-19 18:19 | NUR ---
Problems reprioritized. Patient report given, questions answered & plan of care reviewed with ENRIQUE Enriquez.
--- NOTE | 2022-10-19 18:25 | NUR ---
ORDER ENTRY SPECIALIST documentation: I have reviewed and agree with all interventions, assessments performed and documented by Pippa Vines LVN.
--- NOTE | 2022-10-19 18:39 | NUR ---
Patient in room ORTHO 4014. I have received report from TED Das and had the opportunity to ask questions and assume patient care.
[2022-10-19] MEDS: diatr meglu/diatrizoate 30ml oral sol.-(3 dose) bottle NG SCH (21:02)
[2022-10-19] MEDS: mirtazapine 15mg tablet PO SCH (21:02)
[2022-10-19] MEDS: enoxaparin 40mg/0.4ml syringe SQ SCH (21:02)
[2022-10-19 22:00] VITALS: BP 122/86
[2022-10-20 06:00] VITALS: BP 139/95
--- NOTE | 2022-10-20 06:29 | NUR ---
Problems reprioritized. Patient report given, questions answered & plan of care reviewed with ENRIQUE Carrera.
[2022-10-20 06:32] LABS: BASOPHILS % (AUTO) 0.4 % (0-1); EOSINOPHILS # (AUTO) 0.1 X10'3 (0-0.9); EOSINOPHILS % (AUTO) 1.2 % (0-6); HEMATOCRIT 39.8 % (42.0-52.0); HEMOGLOBIN 13.4 g/dl (14.0-17.9); LYMPHOCYTES # (AUTO) 1.4 X10'3 (1.1-4.8); LYMPHOCYTES % (AUTO) 23.9 % (21-51); MEAN CORPUSCULAR HEMOGLOBIN 30.2 PG (27.0-31.0); MEAN CORPUSCULAR HGB CONC 33.7 g/dL (33.0-36.5); MEAN CORPUSCULAR VOLUME 89.6 FL (78-98); MEAN PLATELET VOLUME 8.2 FL (7.4-10.4); MONOCYTES # (AUTO) 0.6 X10'3 (0-0.9); MONOCYTES % (AUTO) 10.2 % (2-12); NEUTROPHILS # (AUTO) 3.8 X10'3 (1.8-7.7); NEUTROPHILS % (AUTO) 64.3 % (42-75); PLATELET COUNT 205 X10'3 (140-440); RED BLOOD COUNT 4.44 X10'6 (4.70-6.10); RED CELL DISTRIBUTION WIDTH 14.1 % (11.5-14.5); WHITE BLOOD COUNT 5.9 X10'3 (4.5-11.0)
[2022-10-20 06:47] LABS: ALANINE AMINOTRANSFERASE 34 U/L (12-78); ALBUMIN 3.4 G/DL (3.4-5.0); ALBUMIN/GLOBULIN RATIO 1.1 (1.1-1.5); ALKALINE PHOSPHATASE 64 IU/L (46-116); ANION GAP 11 (8-16); ASPARTATE AMINO TRANSFERASE 28 U/L (10-37); BILIRUBIN,TOTAL 0.9 MG/DL (0.1-1.0); BLOOD UREA NITROGEN 11 MG/DL (7-18); BUN/CREATININE RATIO 12.9 (10.0-20.0); CALCIUM 8.6 MG/DL (8.5-10.1); CHLORIDE 104 MMOL/L (99-107); CREATININE 0.85 MG/DL (0.60-1.10); GLUCOSE 84 MG/DL (70-104); MAGNESIUM 1.7 MG/DL (1.5-2.4); PHOSPHORUS 3.7 MG/DL (2.3-4.5); POTASSIUM 3.7 MMOL/L (3.5-5.1); SODIUM 139 MMOL/L (135-145); TOTAL CARBON DIOXIDE 24.2 MMOL/L (24-32); TOTAL PROTEIN 6.4 G/DL (6.4-8.2); eGFR > 90 ML/MIN
--- NOTE | 2022-10-20 07:04 | NUR ---
Assumed care of pt. Pt reported anxious to go home as he states he can do his care as an outpatient.
[2022-10-20] MEDS: diatr meglu/diatrizoate 30ml oral sol.-(3 dose) bottle NG SCH (07:09)
[2022-10-20] MEDS: K and/or MAG REPLACEMENT MC SCH (08:00)
[2022-10-20] MEDS: pantoprazole 40MG/NS 100ML BAG 100 ML IV SCH (08:06)
[2022-10-20] MEDS: normal saline 1000ml 1,000 ML IV SCH (08:08)
[2022-10-20 10:00] VITALS: BP 138/85
[2022-10-20 18:00] VITALS: BP 147/90
--- NOTE | 2022-10-20 18:36 | NUR ---
Patient in room ORTHO 4014. I have received report from CAROL NUNEZ and had the opportunity to ask questions and assume patient care.
--- NOTE | 2022-10-20 18:43 | NUR ---
PATIENT DISCHARGED HOME WITH SPOUSE. VITAL SIGNS STABLE (BP 147/90, HR 77, O2 98 ON ROOM AIR) AND IN NO APPARENT DISTRESS. INSTRUCTIONS GIVEN ON HOME MEDICATIONS AND INSTRUCTED TO FOLLOW UP WITH HIS PRIMARY PROVIDER.
== END 2022-10-20 18:30 | disposition home or self-care (01) | DRG 390 ==
LOC: ER 12:43 → ED HOLD 17:49 → ORTHO 4S 21:50
PROVIDERS: ADMIT Family Medicine; ATTEND Family Medicine
PROC: 0D9670Z Drainage of Stomach with Drainage Device, Via Natural or Artificial Opening (ICD-10-PCS; principal; 2022-10-18)
DX: K56.600 Partial intestinal obstruction, unspecified as to cause (principal); J30.9 Allergic rhinitis, unspecified; K21.9 Gastro-esophageal reflux disease without esophagitis; Z87.11 Personal history of peptic ulcer disease; Z87.19 Personal history of other diseases of the digestive system; Z88.8 Allergy status to other drugs, medicaments and biological substances; Z79.899 Other long term (current) drug therapy
CPT/HCPCS: 36415; 71045; 74176; 80053; 81003; 83690; 83735; 84100; 85025; 87081; 96374; 96375; 99285; C9113; G0378; J1170; J1650; J2250; J2270; J2405; J2765; J3010; J3480; J3490; J7030; Q9963

== ENCOUNTER 2023-05-28 16:59 | Emergency (ER) | payer BC ==
[~2023-05-28] VITALS: Ht 180.3 cm; Wt 77.6 kg
[~2023-05-28 16:59] MED LIST changes: +CETI10TA15 PO; -FLUT16SP NS; +FLUT16SP26 BOTHNARES; +MULT-1180 PO
[2023-05-28 18:17] LABS: BASOPHILS % (AUTO) 0.1 % (0-1); EOSINOPHILS % (AUTO) 0 % (0-6); HEMATOCRIT 41.8 % (42.0-52.0); HEMOGLOBIN 14.3 g/dl (14.0-17.9); LYMPHOCYTES # (AUTO) 0.4 X10'3 (1.1-4.8); MEAN CORPUSCULAR HEMOGLOBIN 31.2 PG (27.0-31.0); MEAN CORPUSCULAR HGB CONC 34.2 g/dL (33.0-36.5); MEAN PLATELET VOLUME 8.3 FL (7.4-10.4); MONOCYTES # (AUTO) 0.2 X10'3 (0-0.9); MONOCYTES % (AUTO) 2.6 % (2-12); NEUTROPHILS # (AUTO) 8.6 X10'3 (1.8-7.7); NEUTROPHILS % (AUTO) 93.3 % (42-75); PLATELET COUNT 236 X10'3 (140-440); RED BLOOD COUNT 4.59 X10'6 (4.70-6.10); RED CELL DISTRIBUTION WIDTH 14.1 % (11.5-14.5); WHITE BLOOD COUNT 9.2 X10'3 (4.5-11.0)
[2023-05-28 18:32] LABS: ALANINE AMINOTRANSFERASE 48 U/L (12-78); ALBUMIN 4.3 G/DL (3.4-5.0); ALKALINE PHOSPHATASE 82 IU/L (46-116); ANION GAP 13 (8-16); ASPARTATE AMINO TRANSFERASE 37 U/L (10-37); BLOOD UREA NITROGEN 13 MG/DL (7-18); BUN/CREATININE RATIO 10.3 (10.0-20.0); CALCIUM 10.1 MG/DL (8.5-10.1); CHLORIDE 99 MMOL/L (99-107); CREATININE 1.26 MG/DL (0.60-1.10); GLUCOSE 197 MG/DL (70-104); LIPASE 19 U/L (16-77); POTASSIUM 4.1 MMOL/L (3.5-5.1); SODIUM 138 MMOL/L (135-145); TOTAL CARBON DIOXIDE 26.2 MMOL/L (24-32); TOTAL PROTEIN 8.6 G/DL (6.4-8.2); eCRCL 67 ML/MIN; eGFR 59 ML/MIN
[2023-05-28] MEDS ORDERED: iohexol 300mg/ml 100ml inj. ONE (20:43)
[2023-05-28] MEDS ORDERED: HYDROcodone/acetaminophen 5mg/325mg tablet PO ONE (23:30)
[2023-05-28] MEDS ORDERED: ondansetron/PF 4mg/2ml inj IV ONE (23:30)
[2023-05-28] MEDS ORDERED: normal saline 1000ml 1,000 ML IV ONE (23:30)
[2023-05-28] MEDS ORDERED: fentaNYL/PF 50MCG/1 ML 2ML syringe IV ONE (23:30)
[2023-05-29 00:34] LABS: BILIRUBIN,URINE NEGATIVE (Neg); CLARITY,URINE CLEAR (Clear); COLOR,URINE YELLOW (Yellow); GLUCOSE, URINE NEGATIVE (Neg); KETONES,URINE 40 mg/dl (Neg); LEUKOCYTE ESTERASE ,URINE NEGATIVE (Neg); NITRITES, URINE NEGATIVE (Neg); OCCULT BLOOD,URINE NEGATIVE (Neg); PH,URINE 6.5 (4.8-8.0); PROTEIN,URINE TRACE mg/dl (Neg); UROBILINOGEN,URINE 0.2 E.U/dL (0.2-1.0)
[2023-05-29 00:41] LABS: UA COLLECTION TYPE CLN CATCH MIDSTREAM
[2023-05-29 00:42] LABS: WBC,URINE 0-4 /HPF (0-4)
[2023-05-29 00:43] LABS: BACTERIA,URINE NONE SEEN /HPF (Neg); SQUAMOUS EPITHELIAL CELL,UR NONE SEEN /LPF (FEW)
[2023-05-29] MEDS ORDERED: ONDA8TAB13 PO (01:57)
[2023-05-29] MEDS ORDERED: DOCU-171 PO (01:57)
[2023-05-29 02:19] VITALS: BP 124/76; PULSE 103; RESP 16; TEMP 98; O2SAT 98
== END 2023-05-29 02:22 | disposition home or self-care (01) ==
LOC: ER 17:00
DX: R11.2 Nausea with vomiting, unspecified (principal); R10.9 Unspecified abdominal pain; K21.9 Gastro-esophageal reflux disease without esophagitis; Z88.6 Allergy status to analgesic agent; Z79.899 Other long term (current) drug therapy
CPT/HCPCS: 36415; 74177; 76700; 80053; 81001; 83605; 83690; 85025; 96361; 96374; 96375; 99285; J2405; J3010; J3490; J7030; Q9967

== ENCOUNTER 2023-05-30 15:02 | Emergency (ER) | payer BC ==
[~2023-05-30] VITALS: Ht 180.3 cm; Wt 79.5 kg
[~2023-05-30 15:02] MED LIST changes: +DOCU-171 PO; +ONDA8TAB13 PO
[2023-05-30 15:04] VITALS: BP 163/85; PULSE 87; RESP 16; TEMP 98.3; O2SAT 100
[2023-05-30 15:29] LABS: BASOPHILS % (AUTO) 0.1 % (0-1); EOSINOPHILS % (AUTO) 0 % (0-6); HEMATOCRIT 42.1 % (42.0-52.0); HEMOGLOBIN 14.1 g/dl (14.0-17.9); LYMPHOCYTES # (AUTO) 0.5 X10'3 (1.1-4.8); LYMPHOCYTES % (AUTO) 5.2 % (21-51); MEAN CORPUSCULAR HEMOGLOBIN 31.1 PG (27.0-31.0); MEAN CORPUSCULAR HGB CONC 33.4 g/dL (33.0-36.5); MEAN CORPUSCULAR VOLUME 93.1 FL (78-98); MEAN PLATELET VOLUME 8.5 FL (7.4-10.4); MONOCYTES # (AUTO) 0.2 X10'3 (0-0.9); MONOCYTES % (AUTO) 2.7 % (2-12); NEUTROPHILS # (AUTO) 8.6 X10'3 (1.8-7.7); PLATELET COUNT 221 X10'3 (140-440); RED BLOOD COUNT 4.53 X10'6 (4.70-6.10); WHITE BLOOD COUNT 9.4 X10'3 (4.5-11.0)
[2023-05-30 16:18] LABS: ALANINE AMINOTRANSFERASE 47 U/L (12-78); ALBUMIN 4.1 G/DL (3.4-5.0); ALKALINE PHOSPHATASE 74 IU/L (46-116); ANION GAP 16 (8-16); ASPARTATE AMINO TRANSFERASE 53 U/L (10-37); BILIRUBIN,TOTAL 0.8 MG/DL (0.1-1.0); BLOOD UREA NITROGEN 16 MG/DL (7-18); BUN/CREATININE RATIO 13.6 (10.0-20.0); CALCIUM 9.2 MG/DL (8.5-10.1); CHLORIDE 100 MMOL/L (99-107); CREATININE 1.18 MG/DL (0.60-1.10); GLUCOSE 141 MG/DL (70-104); POTASSIUM 3.9 MMOL/L (3.5-5.1); PRO BRAIN NATRIURETIC PEPTIDE 180 PG/ML (0-125); SODIUM 135 MMOL/L (135-145); TOTAL PROTEIN 8.2 G/DL (6.4-8.2); eCRCL 72 ML/MIN; eGFR 63 ML/MIN
== END 2023-05-30 23:51 | disposition left against medical advice (07) ==
LOC: ER 15:02
DX: R10.13 Epigastric pain (principal); Z53.21 Procedure and treatment not carried out due to patient leaving prior to being seen by health care provider
CPT/HCPCS: 36415; 71045; 80053; 83880; 84484; 85025; 93005; 99281

== ENCOUNTER 2023-07-18 06:14 | Inpatient (IN) | payer BC ==
[~2023-07-18] VITALS: Ht 177.8 cm; Wt 165.4 kg
[2023-07-18] MEDS: morphine 4 MG/ML inj SYRINge IV ONE ×3 (06:48→08:44)
[2023-07-18] MEDS: ondansetron/PF 4mg/2ml inj ONE (06:48)
[2023-07-18] MEDS: pantoprazole 40 MG vial IV ONE (06:59)
[2023-07-18] MEDS ORDERED: ondansetron/PF 4mg/2ml inj IV ONE (07:35)
[2023-07-18] MEDS ORDERED: morphine 4 MG/ML inj SYRINge IV ONE (07:35)
[2023-07-18 07:54] LABS: ALANINE AMINOTRANSFERASE 28 U/L (12-78); ALBUMIN 4.2 G/DL (3.4-5.0); ALBUMIN/GLOBULIN RATIO 1.2 (1.1-1.5); ALKALINE PHOSPHATASE 63 IU/L (46-116); ANION GAP 14 (8-16); ASPARTATE AMINO TRANSFERASE 29 U/L (10-37); BILIRUBIN,TOTAL 0.7 MG/DL (0.1-1.0); BLOOD UREA NITROGEN 12 MG/DL (7-18); CALCIUM 9.7 MG/DL (8.5-10.1); CHLORIDE 102 MMOL/L (99-107); CREATININE 1.09 MG/DL (0.60-1.10); GLUCOSE 176 MG/DL (70-104); LIPASE 21 U/L (16-77); SODIUM 142 MMOL/L (135-145); TOTAL CARBON DIOXIDE 25.6 MMOL/L (24-32); TOTAL PROTEIN 7.8 G/DL (6.4-8.2); eCRCL 75 ML/MIN; eGFR 69 ML/MIN
[2023-07-18] MEDS ORDERED: pantoprazole 40 MG vial IV ONE (08:00)
[2023-07-18] MEDS: normal saline 1000ml IV bolus over 1 hour IV SCH (08:10)
[2023-07-18 08:22] LABS: BASOPHILS % (AUTO) 0.2 % (0-1); EOSINOPHILS % (AUTO) 0 % (0-6); HEMATOCRIT 37.4 % (42.0-52.0); HEMOGLOBIN 12.5 g/dl (14.0-17.9); LYMPHOCYTES # (AUTO) 0.4 X10'3 (1.1-4.8); LYMPHOCYTES % (AUTO) 6.2 % (21-51); MEAN CORPUSCULAR HEMOGLOBIN 31.2 PG (27.0-31.0); MEAN CORPUSCULAR HGB CONC 33.5 g/dL (33.0-36.5); MEAN PLATELET VOLUME 8.1 FL (7.4-10.4); MONOCYTES # (AUTO) 0.3 X10'3 (0-0.9); MONOCYTES % (AUTO) 5.2 % (2-12); NEUTROPHILS # (AUTO) 5.8 X10'3 (1.8-7.7); NEUTROPHILS % (AUTO) 88.4 % (42-75); PLATELET COUNT 180 X10'3 (140-440); RED BLOOD COUNT 4.02 X10'6 (4.70-6.10); RED CELL DISTRIBUTION WIDTH 14.1 % (11.5-14.5); WHITE BLOOD COUNT 6.5 X10'3 (4.5-11.0)
[2023-07-18 10:22] LABS: BILIRUBIN,URINE NEGATIVE (Neg); CLARITY,URINE CLEAR (Clear); COLOR,URINE YELLOW (Yellow); GLUCOSE, URINE 100 mg/dl (Neg); KETONES,URINE NEGATIVE (Neg); LEUKOCYTE ESTERASE ,URINE NEGATIVE (Neg); NITRITES, URINE NEGATIVE (Neg); OCCULT BLOOD,URINE NEGATIVE (Neg); PH,URINE 7.5 (4.8-8.0); PROTEIN,URINE NEGATIVE (Neg); UROBILINOGEN,URINE 0.2 E.U/dL (0.2-1.0)
[2023-07-18 10:35] LABS: UA COLLECTION TYPE CLN CATCH MIDSTREAM
[2023-07-18] MEDS ORDERED: magnesium 2GM in 50ml NS 50 ML IV PRN (12:35)
[2023-07-18] MEDS ORDERED: glucagon, human recombinant 1mg kit SUBCUT PRN (12:35)
[2023-07-18] MEDS ORDERED: magnesium 4gm in 100ml NS 100 ML IV PRN (12:35)
[2023-07-18] MEDS ORDERED: mag hydrox/Alum hydrox/simeth 30ml oral suspension PO PRN (12:35)
[2023-07-18] MEDS ORDERED: acetaminophen 325mg tablet PO PRN (12:35)
[2023-07-18] MEDS ORDERED: DEXTROSE 15 GM of carb/4 tabs (each vial/BOTTLE has 4 tablets) PO PRN ×2 (12:35)
[2023-07-18] MEDS ORDERED: morphine 2 MG/ML inj. syringe IV PRN (12:35)
[2023-07-18] MEDS ORDERED: dextrose 50%-water 50ml dispensing syringe IV PRN ×2 (12:35)
[2023-07-18] MEDS ORDERED: insulin Lispro (HumaLOG) vial - multi-dose SQ SCH (12:35)
[2023-07-18] MEDS ORDERED: potassium Cl 40MEQ/1/2NS 520ml 520 ML IV PRN (12:35)
[2023-07-18] MEDS ORDERED: potassium Cl 20 mEq SR tablet PO PRN ×2 (12:35)
[2023-07-18] MEDS ORDERED: ondansetron/PF 4mg/2ml inj IV PRN (12:35)
[2023-07-18] MEDS ORDERED: magnesium Cl slow-release 64mg tablet PO PRN (12:35)
[2023-07-18] MEDS: MESSAGE TO PHARMACY PO ONE (13:09)
[2023-07-18] MEDS: dextrose 5%-1/2 normal saline 1,000 ML IV SCH (13:11)
[2023-07-18 19:00] VITALS: RESP 18; O2SAT 98
[2023-07-18 20:00] VITALS: RESP 18; O2SAT 98
[2023-07-18] MEDS: docusate sod 100mg capsule PO SCH (20:01)
[2023-07-18] MEDS: magnesium hydroxide 30ml (MOM) UD suspension PO PRN (20:01)
[2023-07-18] MEDS: K and/or MAG REPLACEMENT MC SCH (20:39)
[2023-07-18] MEDS: insulin glargine (Lantus) pen - multi-dose SQ SCH (21:00)
[2023-07-18] MEDS ORDERED: diatr meglu/diatrizoate 30ml oral sol.-(3 dose) bottle ONE (21:01)
[2023-07-18 22:00] VITALS: BP 141/95; PULSE 71; RESP 18; TEMP 98.1; O2SAT 98
[2023-07-18] MEDS: mirtazapine 15mg tablet PO ONE (23:27)
[2023-07-19 05:45] VITALS: BP 98/59; PULSE 63; RESP 18; TEMP 98.1; O2SAT 98
[2023-07-19 06:15] LABS: BASOPHILS % (AUTO) 0.2 % (0-1); EOSINOPHILS % (AUTO) 0.3 % (0-6); HEMATOCRIT 38.6 % (42.0-52.0); HEMOGLOBIN 12.8 g/dl (14.0-17.9); LYMPHOCYTES # (AUTO) 1.4 X10'3 (1.1-4.8); LYMPHOCYTES % (AUTO) 21.5 % (21-51); MEAN CORPUSCULAR HEMOGLOBIN 31.4 PG (27.0-31.0); MEAN CORPUSCULAR HGB CONC 33.3 g/dL (33.0-36.5); MEAN CORPUSCULAR VOLUME 94.5 FL (78-98); MEAN PLATELET VOLUME 8.6 FL (7.4-10.4); MONOCYTES # (AUTO) 0.8 X10'3 (0-0.9); MONOCYTES % (AUTO) 11.6 % (2-12); NEUTROPHILS # (AUTO) 4.3 X10'3 (1.8-7.7); NEUTROPHILS % (AUTO) 66.4 % (42-75); PLATELET COUNT 186 X10'3 (140-440); RED BLOOD COUNT 4.08 X10'6 (4.70-6.10); RED CELL DISTRIBUTION WIDTH 14.1 % (11.5-14.5); WHITE BLOOD COUNT 6.5 X10'3 (4.5-11.0)
[2023-07-19 06:26] LABS: ALANINE AMINOTRANSFERASE 22 U/L (12-78); ALBUMIN 3.3 G/DL (3.4-5.0); ALBUMIN/GLOBULIN RATIO 0.9 (1.1-1.5); ALKALINE PHOSPHATASE 48 IU/L (46-116); ANION GAP 9 (8-16); ASPARTATE AMINO TRANSFERASE 24 U/L (10-37); BILIRUBIN,TOTAL 0.8 MG/DL (0.1-1.0); BLOOD UREA NITROGEN 8 MG/DL (7-18); BUN/CREATININE RATIO 9.1 (10.0-20.0); CALCIUM 8.7 MG/DL (8.5-10.1); CHLORIDE 107 MMOL/L (99-107); CHOL/HDL RATIO 2.1 (0.00-4.99); CHOLESTEROL 191 MG/DL (0-200); CREATININE 0.88 MG/DL (0.60-1.10); GLUCOSE 95 MG/DL (70-104); HDL CHOLESTEROL 91 MG/DL (35-60); LDL CHOLESTEROL 79 MG/DL (50-100); MAGNESIUM 2.5 MG/DL (1.5-2.4); SODIUM 143 MMOL/L (135-145); TOTAL CARBON DIOXIDE 27.3 MMOL/L (24-32); TOTAL PROTEIN 6.8 G/DL (6.4-8.2); TRIGLYCERIDES 128 MG/DL (20-135); eCRCL 93 ML/MIN; eGFR 89 ML/MIN
[2023-07-19 06:27] LABS: POTASSIUM 3.8 MMOL/L (3.5-5.1)
[2023-07-19] MEDS: enoxaparin 40mg/0.4ml syringe SUBCUT SCH (08:00)
[2023-07-19] MEDS: diatr meglu/diatrizoate 30ml oral sol.-(3 dose) bottle PO SCH (09:06)
[2023-07-19 09:15] VITALS: RESP 18; O2SAT 98
[2023-07-19 10:00] VITALS: BP 139/90; PULSE 62; RESP 14; TEMP 98; O2SAT 100
[2023-07-19] MEDS: pantoprazole 40mg Tablet.DR PO SCH (10:47)
[2023-07-19] MEDS ORDERED: mirtazapine 15mg tablet PO SCH (21:00)
[2023-07-19] MEDS ORDERED: baclofen 10mg tablet PO SCH (21:00)
== END 2023-07-19 15:00 | disposition home or self-care (01) | DRG 390 ==
LOC: ER 06:14 → ED HOLD 12:39 → SUR 3N 17:09
PROVIDERS: ADMIT Internal Medicine; ATTEND Internal Medicine
PROC: 0D9670Z Drainage of Stomach with Drainage Device, Via Natural or Artificial Opening (ICD-10-PCS; principal; 2023-07-18)
DX: K56.600 Partial intestinal obstruction, unspecified as to cause (principal); K21.9 Gastro-esophageal reflux disease without esophagitis; K58.9 Irritable bowel syndrome, unspecified; Z88.6 Allergy status to analgesic agent; Z87.11 Personal history of peptic ulcer disease; Z79.899 Other long term (current) drug therapy
CPT/HCPCS: 36415; 74018; 74176; 80053; 80061; 81003; 82948; 83036; 83690; 83735; 85025; 87081; 96374; 96375; 96376; 99285; C9113; G0378; J1815; J2270; J2405; Q9963

== ENCOUNTER 2023-11-29 15:32 | Emergency (ER) | payer BC ==
[~2023-11-29] VITALS: Ht 180.3 cm; Wt 74.3 kg
[~2023-11-29 15:32] MED LIST changes: +ONDA-245 PO; -ONDA8TAB13 PO
[2023-11-29 15:43] VITALS: TEMP 98.7
[2023-11-29 16:45] LABS: BASOPHILS % (AUTO) 0.4 % (0-1); EOSINOPHILS % (AUTO) 0 % (0-6); HEMATOCRIT 45.5 % (42.0-52.0); HEMOGLOBIN 15.1 g/dl (14.0-17.9); LYMPHOCYTES # (AUTO) 0.5 X10'3 (1.1-4.8); LYMPHOCYTES % (AUTO) 5.2 % (21-51); MEAN CORPUSCULAR HEMOGLOBIN 30.2 PG (27.0-31.0); MEAN CORPUSCULAR HGB CONC 33.3 g/dL (33.0-36.5); MEAN CORPUSCULAR VOLUME 90.7 FL (78-98); MEAN PLATELET VOLUME 8.7 FL (7.4-10.4); MONOCYTES # (AUTO) 0.3 X10'3 (0-0.9); MONOCYTES % (AUTO) 2.5 % (2-12); NEUTROPHILS # (AUTO) 9.8 X10'3 (1.8-7.7); NEUTROPHILS % (AUTO) 91.9 % (42-75); PLATELET COUNT 248 X10'3 (140-440); RED BLOOD COUNT 5.01 X10'6 (4.70-6.10); RED CELL DISTRIBUTION WIDTH 13.3 % (11.5-14.5); WHITE BLOOD COUNT 10.7 X10'3 (4.5-11.0)
[2023-11-29 16:56] LABS: APTT 24 SECONDS (22-32); PROTHROMBIN TIME 10.6 SECONDS (9.0-12.0)
[2023-11-29 17:13] LABS: ALANINE AMINOTRANSFERASE 40 U/L (12-78); ALBUMIN 4.4 G/DL (3.4-5.0); ALBUMIN/GLOBULIN RATIO 1.1 (1.1-1.5); ALKALINE PHOSPHATASE 74 IU/L (46-116); ANION GAP 12 (8-16); ASPARTATE AMINO TRANSFERASE 42 U/L (10-37); BILIRUBIN,TOTAL 0.8 MG/DL (0.1-1.0); BLOOD UREA NITROGEN 18 MG/DL (7-18); BUN/CREATININE RATIO 16.1 (10.0-20.0); CALCIUM 9.7 MG/DL (8.5-10.1); CHLORIDE 99 MMOL/L (99-107); CREATININE 1.12 MG/DL (0.60-1.10); GLUCOSE 135 MG/DL (70-104); LIPASE 24 U/L (16-77); POTASSIUM 3.9 MMOL/L (3.5-5.1); SODIUM 136 MMOL/L (135-145); TOTAL CARBON DIOXIDE 24.9 MMOL/L (24-32); TOTAL PROTEIN 8.5 G/DL (6.4-8.2); eCRCL 74 ML/MIN; eGFR 67 ML/MIN
[2023-11-29] MEDS: dicyclomine 10mg/ml 2ml ampule IM ONE (20:41)
[2023-11-29] MEDS: diphenhydrAMINE 50 mg/ml inj IV ONE (20:41)
[2023-11-29] MEDS: dexamethasone sod phosphate 10mg/ml inj IV STA (20:41)
[2023-11-29] MEDS: metoclopramide 5 mg/ml inj IV ONE (20:42)
[2023-11-29] MEDS: ketorolac trometh. 30mg/ml inj. IV ONE (20:42)
[2023-11-29] MEDS ORDERED: DICY20TA17 PO (20:54)
[2023-11-29] MEDS ORDERED: ONDA-243 PO (20:54)
[2023-11-29] MEDS: ketorolac trometh. 30mg/ml inj. IM ONE (21:00)
[2023-11-29] MEDS: ondansetron 4mg rapidly disintigrating tab PO ONE (21:02)
[2023-11-29] MEDS: dicyclomine 10 MG capsule PO ONE (21:03)
[2023-11-29] MEDS: LIDOcaine 2% Viscous 15ml cup MM PRN (21:49)
[2023-11-29] MEDS: mag hydrox/Alum hydrox/simeth 30ml oral suspension PO ONE (21:49)
[2023-11-29 22:42] VITALS: BP 175/90; PULSE 78; RESP 19; O2SAT 96
== END 2023-11-29 22:44 | disposition home or self-care (01) ==
LOC: ER 15:33
DX: K52.9 Noninfective gastroenteritis and colitis, unspecified (principal); K21.9 Gastro-esophageal reflux disease without esophagitis; R10.9 Unspecified abdominal pain; Z79.82 Long term (current) use of aspirin; Z88.6 Allergy status to analgesic agent; Z79.1 Long term (current) use of non-steroidal anti-inflammatories (NSAID); Z79.899 Other long term (current) drug therapy
CPT/HCPCS: 36415; 74176; 80053; 83605; 83690; 85025; 85610; 85730; 87040; 96372; 96374; 96375; 99285; J0500; J1100; J1200; J1885; J2765

== ENCOUNTER 2023-12-02 17:45 | Emergency (ER) | payer BC ==
[~2023-12-02] VITALS: Ht 180.3 cm; Wt 77.3 kg
[~2023-12-02 17:45] MED LIST changes: +DICY20TA17 PO; +ONDA-243 PO
[2023-12-02] MEDS ORDERED: CEPH-585 PO (18:12)
[2023-12-02] MEDS: cephalexin 250mg capsule PO ONE (18:40)
[2023-12-02 18:54] VITALS: BP 133/97; PULSE 79; RESP 18; TEMP 98.4; O2SAT 97
== END 2023-12-02 18:57 | disposition home or self-care (01) ==
LOC: ER 17:46
DX: R79.9 Abnormal finding of blood chemistry, unspecified (principal); K21.9 Gastro-esophageal reflux disease without esophagitis; Z88.8 Allergy status to other drugs, medicaments and biological substances; Z79.899 Other long term (current) drug therapy; Z79.2 Long term (current) use of antibiotics; Z79.51 Long term (current) use of inhaled steroids; Z98.890 Other specified postprocedural states; Z72.89 Other problems related to lifestyle
CPT/HCPCS: 99283

== ENCOUNTER 2025-04-25 19:28 | Emergency (ER) | payer BC ==
[~2025-04-25] VITALS: Ht 180.3 cm; Wt 72.2 kg
[2025-04-25 19:34] VITALS: RESP 15
--- NOTE | 2025-04-25 19:55 | RADIOLOGY REPORT ---
EXAM: DI FINGER(S) INDICATION: laceration TECHNIQUE:: 3 views of the left fingers COMPARISON: None FINDINGS/IMPRESSION: No radiographic evidence of an acute osseous abnormality. There is no acute fracture, osseous malalignment, or aggressive focal osseous lesion.
--- NOTE | 2025-04-25 20:07 | Physician Documentation ---
History of Present Illness ~ General Chief Complaint: Bite-animal Stated Complaint: DOG BITE- L HAND Time Seen by MD: 19:41 OK to notify your PCP?: Yes Primary Medical Doctor: DR. Maulik ARREGUIN, DR. Gillian PEGUERO Source: patient Mode of Arrival: POV Exam Limitations: no limitations History of Present Illness Initial Comments 59 year old male presents to the ED after he sustained a dog bite to his left index finger this evening. His brar retriever and [place] desir were "fighting over scraps" and he reached in between them and was bit. His last tetanus shot was within 5 years. Patient denies any other associated symptoms. Patient denies any other alleviating or exacerbating factors at this time. Medication Reconciliation Allergies: Coded Allergies: aspirin (Unverified Adverse Reaction, Severe, BLEEDING, 04/25/25) ibuprofen (Unverified Adverse Reaction, Severe, BLEEDING, 04/25/25) Scheduled Baclofen (Baclofen), 1 TAB PO HS, (Reported) Cephalexin*Monohydrate* (Keflex*), 1 CAP PO TID Cetirizine HCl (Cetirizine HCl), 1 TAB PO DAILY, (Reported) Dicyclomine HCl (Dicyclomine HCl), 1 TAB PO Q12H Docusate Sodium (Dulcolax Stool Softener), 1 CAP PO DAILY Fluticasone Propionate (Fluticasone Propionate), 2 SPRAYS BOTHNARES DAILY, (Reported) Mirtazapine (Mirtazapine), 30 MG PO HS, (Reported) Multivitamin/Iron/Folic Acid (Centrum Adults Tablet), 1 TAB PO DAILY, (Reported) Ondansetron 8mg ODT (Ondansetron Odt), 1 TAB PO Q6H Pantoprazole Sodium (Pantoprazole Sodium), 1 TAB PO BID, (Reported) Scheduled PRN ONDANSETRON ODT 4mg tablet (Ondansetron Odt), 1 TAB PO Q6H PRN PRN for nausea/vomiting Past Medical History Past Medical History: Allergic Rhinitis, *GI/HEPATOBILIARY*, GERD, Inflammatory Bowel Dz, Peptic Ulcer Disease Past Surgical History: abdominal surgery, other Other Past Surgical History: Theron fundoplication, with a redo 2014 and 2021. Alcohol Use: Occasionally Drug Use: none Lives with: Spouse Lives In: Home Occupation: employed Review of Systems All Other Systems at this time: Reviewed and Negative ROS Constitutional: Negative for fever and chills. HENT: Negative for sore throat and rhinorrhea. Eyes:Negative for pain and redness. Respiratory: Negative for cough and shortness of breath. Cardiovascular: Negative for chest pain and palpitations. Gastrointestinal: Negative for nausea and vomiting. Genitourinary: Negative for dysuria and hematuria. Musculoskeletal: Negative for acute back pain and acute neck pain. Skin: Negative for rash and pruritus. Neurological: Negative for acute numbness or weakness. Physical Exam Physical Exam Vital Signs: RN Vital Signs have been reviewed: Yes, Temperature: 98.6, Source: Temporal, Heart Rate: 99, Respiratory Rate: 15, BP: 110/65, Pulse Oximetry: 99, Weight: 72.200 Pulse Oximetry Reflects: adequate oxygenation Physical Exam General Appearance: WDWN, No Distress, Cooperative, Awake Head: No Trauma. Scalp Normal Eyes: Lids normal, conjunctiva normal ENT: Mucous membranes normal, facial bones normal, lips normal, oropharynx normal Neck: Normal active FROM, non-tender with ROM, no meningeal signs, No JVD Back: Normal active FROM, non-tender with ROM, no CVAT Resp: Normal resp rate, normal flow, lungs clear to auscultation, no resp distress, no retractions Heart: Reg rhythm, no murmur Abd: Soft, non-tender, no guarding, no rebound, no mass Musc/Skel: No chest wall tenderness, Normal ROM UE's and LE's, No acute bone/joint abnormality or tenderness Skin: Left index finger dorsal lateral aspect with 5 cm laceration from proximal finger distal to PIP joint, normal flexion and extension, capillary refill less than 2 seconds. Otherwise: Normal color, no petechia/purpura, no rash Extremities: No edema Neuro: Motor 5/5 & Symmetric Bilat, CN 2-12 grossly intact and symmetric bilat. Oriented x4, speech normal. Psych: Mood & Affect: Normal, Depressed: 0, Awareness & insight normal Procedures Laceration/Wound Repair Laceration/Wound Repair : Length (cm): 5 Anesthesia: Lidocaine Volume Anesthetic (mls): 4 Margins: revised Foreign Body: not identified Repaired: skin Wound Repaired With: sutures Number of Superficial Sutures: 10 Tolerated Procedure Well?: yes, no complications Progress Results/Orders Results/Orders Orders - ADILIA WANG MD Finger(S) (04/25/25 ) Laceration/I&D Tray Set Up (04/25/25 20:10) Dermabond To Bedside (04/25/25 20:10) General Nursing Order (04/25/25 20:13) Apply Splint Finger Static (04/25/25 ) Completed Orders - ADILIA WANG MD Finger(S) (04/25/25 ) Lidocaine 1% 30ml Vial (Xylocaine 1% Via (04/25/25 20:10) Cephalexin Capsule (Keflex Capsule) (04/25/25 21:40) Vital Signs 04/25/25 04/25/25 19:34 22:28 Temp 98.6 98.6 Pulse 99 78 Resp 15 B/P (MAP) 110/65 158/64 Pulse Ox 99 98 EKG/XRAY/CT/US/VASC/MRI Bone/Soft Tissue X-Ray (Ext.) : Interpreted By: radiologist Views: 3 VIEW Location: other (finger) Additional Comment finger Xray: FINDINGS/IMPRESSION: No radiographic evidence of an acute osseous abnormality. There is no acute fracture, osseous malalignment, or aggressive focal osseous lesion. Medical Decision Making Additional information obtaine: other Findings other Differential Diagnosis ER COURSE -I have reviewed the triage note. History obtained from pt and -All Labs, if applicable, independently reviewed by me I checked in EMR for old Records Admission considered, but no evidence of emergent injury, neurovascularly intact, no open fracture Laboratory and radiology testing considered but deemed not necessary during this current emergency department visit:CT hand Treatment/therapeutic interventions considered but deemed not necessary during this emergency department visit:IV pain meds Repeat Evaluation: After lidocaine, patient reports significant pain relief Additional REPEAT EVALUATION:Results and plan of care discussed with patient, patient understands and is agreeable to plan and disposition. Limited: (2 points from category 1 or one discussion with independent historian). Moderate: one of the following (3 points from category 1, or independent interpretations of tests performed by another physician/QHP: (ct,ecg,rad jennifer,rhythm strip,or comparing xray to prior), or discussion of tests or management with other professionals (not including [facility] ER doc/PA or family members.) High: (2 of 3 from : category 1 (3 points), independent interpretation of tests performed by another physician/QHP, and discussion of tests or management). Prior [facility] ER notes reviewed: Category 1: Number of Tests ordered or reviewed: 1 Number of Independent Historians: 1 Non [facility] ER notes reviewed: None. Category 2: I independently interpreted the x-ray Category 3: Discussion with other professionals: None [employer] HE[employer] Problems related to: [ ] Challenges with access to Primary Care or Outpatient Speciality Care [ ] Psychosocial circumstances such as mental health issues [ ] Social environment: such as violence or substance abuse [ ] Housing and economic circumstances: such as homelessness [ ] Employment and unemployment: such as recently loss of employment [ ] Occupational exposures or injuries: [ ] Accessing ED outside of normal PCP hours [ ] Language barrier: [ ] Primary support group, including family circumstances: Prescription Mangement: Rx strength meds given in ED: Keflex Rx given: Keflex I have reviewed the patient's medications and I do not recommend any changes at this time. (Applies only if checked) Portions of this chart may have been created with [employer] voice recognition software. Occasional wrong-word or sound-alike substitutions may have occurred due to the inherent limitations of voice recognition software. Please read the chart carefully and recognize, using context, where these substitutions have occurred. Departure Disposition: 01 HOME / SELF CARE / HOMELESS Impression: Primary Impression: Dog bite Qualified Codes: W54.0XXA - Bitten by dog, initial encounter Additional Impression: Laceration of finger of left hand Discharge Instructions: Animal Bite, Adult Additional Instructions: Follow up in two days for wound check and in 7-10 days for suture removal Referrals: NO PRIMARY CARE PROVIDER (PCP) Prescriptions Cephalexin*Monohydrate* (Keflex*) 500 Mg Capsule 1 CAP PO TID for 7 Days, #21 CAP Prov: ADILIA WANG MD 04/25/25 Education Educated: Patient Educated regarding: diagnosis, treatment, need for follow up Signature Scribe Signature: Scribed for Adilia Wang MD by Andreia Son . 04/25/25 21:36 Attestation: The note accurately reflects work and decisions made by me.ADILIA Su MD, MD Apr 25, 2025 20:07 ANDREIA APPLE Apr 25, 2025 21:34
[2025-04-25] MEDS: LIDOcaine 1% 30ml preserv. free vial IJ ONE (20:50)
[2025-04-25] MEDS ORDERED: CEPH-585 PO (21:44)
[2025-04-25 22:28] VITALS: BP 158/64; PULSE 78; TEMP 98.6; O2SAT 98
== END 2025-04-25 22:35 | disposition home or self-care (01) ==
LOC: ER 19:29
DX: S61.211A Laceration without foreign body of left index finger without damage to nail, initial encounter (principal); K21.9 Gastro-esophageal reflux disease without esophagitis; Z88.6 Allergy status to analgesic agent; Z72.89 Other problems related to lifestyle; Z87.11 Personal history of peptic ulcer disease; Z59.00 Homelessness unspecified; Z56.0 Unemployment, unspecified; Z79.899 Other long term (current) drug therapy; W54.0XXA Bitten by dog, initial encounter; Y93.89 Activity, other specified; Y92.89 Other specified places as the place of occurrence of the external cause; Y99.8 Other external cause status
CPT/HCPCS: 12002; 73140; 99283; A6258; A6449